=== PATIENT | female | born 1960 | race Caucasian/White ===

== ENCOUNTER 2018-07-29 11:26 | Outpatient (CLI) | payer OTHER, SELFPAY ==
[2018-07-29 12:25] LABS: Abs Immature Grans 0.01 k/cumm (0.0-0.09); Absolute Basophil Count 0.01 k/cumm (0.0-0.2); Absolute Eosinophil Count 0.03 k/cumm (0.0-0.7); Absolute Monocyte Count 0.51 k/cumm (0.11-0.7); Absolute Neutrophil Count 3.76 k/cumm (1.2-6.7); Basophils % 0.2; Eosinophils % 0.5; HCT 36.3 % (36.0-46.0); HGB 12.2 g/dL (12.0-15.5); Immature Grans % 0.2; Lymphocytes % 31.6; Mean Corp. HGB Concentration 33.6 g/dL (32.0-36.0); Mean Corpuscular Hemoglobin 33.3 pg (27.0-33.0); Mean Corpuscular Volume 99.2 fL (80-95); Mean Platelet Volume 9.3 fL (8.0-11.0); Monocytes % 8.1; Neutrophils % 59.4; Platelet Count 265 x1000/uL (130-400); RBC 3.66 m/cumm (4.00-5.20); RBC Distribution Width 13.2 % (11.7-14.6); White Blood Cell Count 6.32 k/cumm (4.4-10.8)
--- NOTE | 2018-07-29 12:47 | W.PREOPHP ---
Assessment and Plan (1) Primary osteoarthritis of left hip: Current visit: No Status: Chronic EKG done at [facility] on July 29, 2018 shows heart rate of 76, sinus rhythm with questionable incomplete right bundle branch block noted in abnormal appearing V1. X-ray taken on May 13, 2017 shows left hip has [id number] joint, as per Dr. Maxwell's note on July 25, 2018 patient has severe end-stage osteoarthritis of left hip. Plan: Reviewed pertinent anatomy and surgical technique with patient in detail. Discussed risk of surgery including but not limited to risk of injury to soft tissue, nerves and blood vessels as well as risk of infection. Patient had opportunity to have questions answered to her satisfaction. Patient will proceed with preoperative visits, and will be scheduled for left total hip replacement on August 03 2018. Patient will contact office if any issues arise. Ms. Weinberg is a 58 yo female who presents to clinic for preoperative visit of scheduled left total hip replacement with Dr. Maxwell on August 03, 2018. Patient describes history of left groin pain starting October 2017. Patient had seen primary care provider several times before being referred to Dr. Maxwell after x-rays reviewed severe left hip osteoarthritis. She describes pain as located in the left groin that radiates to her left buttocks. 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 Pain is aggravated by walking, prolonged standing and lifting. Patient has failed conservative therapies including Tylenol and Aleve. Reports that she currently wears a shoe lift in her left shoe as per chiropractic recommendations several years ago to help manage left hip and back pain. She denies any numbness, weakness or tingling sensation. She denies history of corticosteroid injections. She denies any known injuries to left hip. Denies past medical history of stroke, cardiac issues, angina, asthma, COPD, sleep apnea, renal issues, liver issues, hepatitis, gastrointestinal ulcers, hyperlipidemia, bleeding disorder, seizure/migraine, anxiety, diabetes, autoimmune conditions, thyroid conditions. Denies prior complications from surgery or anesthesia. Review of Systems Constitutional Denies fever(s) and Denies headache(s) Eyes Patient Denies change in vision ENT Denies dizziness, Denies headache(s), Denies epistaxis, Denies nasal discharge and Denies sore throat Comments: partial lower denture Cardiovascular Denies chest pain, Denies rapid heart rate, Denies irregular heart rhythm, Denies dyspnea, Denies dyspnea on exertion, Denies orthopnea, Denies paroxysmal nocturnal dyspnea and Reports slow heart rate Respiratory Reports cough (dry chronic cough), Denies dyspnea and Denies dyspnea on exertion Comments: Denies productive cough Gastrointestinal Denies abdominal pain, Denies melena, Denies hematochezia, Reports constipation (chronic, no recent changes), Denies diarrhea, Denies nausea and Denies vomiting Genitourinary Denies hematuria, Denies dysuria and Denies urinary urgency Musculoskeletal Reports as per HPI, Reports back pain (left sided), Reports joint swelling (reports right leg edema at end of work shift occasionally), Reports limited range of motion (due to left hip pain), Denies muscle cramps, Denies muscle weakness, Denies numbness, Reports radiating pain into limb (radiation from left groin region to buttocks and low back) and Denies tingling Neurologic Denies dizziness, Denies headache(s), Denies numbness and Denies tingling Psychiatric Denies anxiety and Reports depression (reports well controlled on Effexor XR) PFS Family History Mother No problems noted. Father No problems noted. Brother No problems noted. 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?[employer] Smoking/Tobacco Use Status: Never alcohol intake: current details: Reports 3 beers nightly; denies history of withdrawal symptoms substance use type: does not use Surgical History Abdominal hysterectomy Extraction of cataract Ligation of fallopian tube bladder sling Meds Home Medications Medication Instructions Recorded Confirmed Type Slim Quick 1 tab PO DAILY 09/06/15 07/29/18 History acetaminophen [Acetaminophen Extra 2 tab PO PRN PRN 09/06/15 07/29/18 History Strength] venlafaxine [Effexor XR] 75 mg PO HS 09/06/15 07/29/18 History multivitamin [Daily Multi-Vitamin] 1 tab PO DAILY 09/12/15 07/29/18 History lisinopril 10 mg PO HS 07/29/18 07/29/18 History Allergies Allergy/AdvReac Type Severity Reaction Status Date / Time No Known Allergies Allergy Unverified 07/29/18 14:24 Exam Const General: cooperative, healthy appearing, well developed and well groomed Nutritional Appearance: average body habitus Orientation: alert and oriented x3 HENMT Head: normal to inspection, normocephalic and atraumatic Ears: external ears normal, TM normal on the right and unable to visualize TM (Large amount of cerumen present in the left ear canal obstructing view of left TM) on the left General nose exam: external nose normal and no nasal discharge Face and sinus: face symmetric Mouth: oral mucosae normal, tongue normal and moist mucous membranes Teeth and gingiva: fair dentition (Partial lower denture was intact) Eyes General: appearance normal, both eyes and all related structures Conjunctivae: conjunctivae normal Sclera: sclerae normal Pupils: PERRL Neck Neck: normal visual inspection, no lymphadenopathy and trachea midline Carotids: normal carotid upstroke Lymphatic: no lymphadenopathy noted Resp Effort & Inspection: normal respiratory effort, able to speak in complete sentences, no cough and no retractions Auscultation: clear to auscultation bilaterally Cardio Palpation: abnormal PMI Heart Sounds: S1 normal, S2 normal, no gallops, no murmurs and no rubs GI Palpation: soft, no hepatosplenomegaly and tender (slight tenderness to deep palpation over LLQ, no tenderness to light palpation over LLQ) Auscultation: normal bowel sounds Skin General skin exam: no rashes or lesions noted Extrem Other: Left hip examination: Skin overlying left hip is intact without signs of lesions or rash. Area is without edema, ecchymosis or tenderness to palpation. Palpation over greater trochanter does not elicit pain. Active range of motion reveals flexion of 30? with pain in left groin. Passive range of motion yields abduction of 30?, external rotation 15? and internal rotation of 10?. Passive range of motion elicits pain in the anterior aspect of left hip. Straight leg raise elicits pain in the anterior aspect of left hip. Resisted straight leg raise elicits pain anterior aspect of left hip. Results Labs : 07/29/18 11:50 07/29/18 11:50 Laboratory Results - last 24 hr 07/29/18 11:50 WBC 6.32 RBC 3.66 L Hgb 12.2 Hct 36.3 MCV 99.2 H MCH 33.3 H MCHC 33.6 RDW 13.2 Plt Count 265 MPV 9.3 Immature Gran % 0.2 Neutrophils % 59.4 Lymphocytes % 31.6 Monocytes % 8.1 Eosinophils % 0.5 Basophils % 0.2 Absolute Neutrophils 3.76 Absolute Lymphocytes 2.00 Absolute Monocytes 0.51 Absolute Eosinophils 0.03 Absolute Basophils 0.01
--- NOTE | 2018-07-29 12:57 | HPE_ITS ---
Assessment and Plan (1) Primary osteoarthritis of left hip: Current visit: No Status: Chronic EKG done at [facility] on July 29, 2018 shows heart rate of 76, sinus rhythm with questionable incomplete right bundle branch block noted in abnormal appearing V1. X-ray taken on May 13, 2017 shows left hip has owup-ao-yolo joint, as per Dr. Maxwell's note on July 25, 2018 patient has severe end-stage osteoarthritis of left hip. Plan: Reviewed pertinent anatomy and surgical technique with patient in detail. Discussed risk of surgery including but not limited to risk of injury to soft tissue, nerves and blood vessels as well as risk of infection. Patient had opportunity to have questions answered to her satisfaction. Patient will proceed with preoperative visits, and will be scheduled for left total hip replacement on August 03 2018. Patient will contact office if any issues arise. Ms. Weinberg is a 58 yo female who presents to clinic for preoperative visit of scheduled left total hip replacement with Dr. Maxwell on August 03, 2018. Patient describes history of left groin pain starting October 2017. Patient had seen primary care provider several times before being referred to Dr. Maxwell after x-rays reviewed severe left hip osteoarthritis. She describes pain as located in the left groin that radiates to her left buttocks. 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 Pain is aggravated by walking, prolonged standing and lifting. Patient has failed conservative therapies including Tylenol and Aleve. Reports that she currently wears a shoe lift in her left shoe as per chiropractic recommendations several years ago to help manage left hip and back pain. She denies any numbness, weakness or tingling sensation. She denies history of corticosteroid injections. She denies any known injuries to left hip. Denies past medical history of stroke, cardiac issues, angina, asthma, COPD, sleep apnea, renal issues, liver issues, hepatitis, gastrointestinal ulcers, hyperlipidemia, bleeding disorder, seizure/migraine, anxiety, diabetes, autoimmune conditions, thyroid conditions. Denies prior complications from surgery or anesthesia. Review of Systems Constitutional Denies fever(s) and Denies headache(s) Eyes Patient Denies change in vision ENT Denies dizziness, Denies headache(s), Denies epistaxis, Denies nasal discharge and Denies sore throat Comments: partial lower denture Cardiovascular Denies chest pain, Denies rapid heart rate, Denies irregular heart rhythm, Denies dyspnea, Denies dyspnea on exertion, Denies orthopnea, Denies paroxysmal nocturnal dyspnea and Reports slow heart rate Respiratory Reports cough (dry chronic cough), Denies dyspnea and Denies dyspnea on exertion Comments: Denies productive cough Gastrointestinal Denies abdominal pain, Denies melena, Denies hematochezia, Reports constipation (chronic, no recent changes), Denies diarrhea, Denies nausea and Denies vomiting Genitourinary Denies hematuria, Denies dysuria and Denies urinary urgency Musculoskeletal Reports as per HPI, Reports back pain (left sided), Reports joint swelling ( reports right leg edema at end of work shift occasionally), Reports limited range of motion (due to left hip pain), Denies muscle cramps, Denies muscle weakness, Denies numbness, Reports radiating pain into limb (radiation from left groin region to buttocks and low back) and Denies tingling Neurologic Denies dizziness, Denies headache(s), Denies numbness and Denies tingling Psychiatric Denies anxiety and Reports depression (reports well controlled on Effexor XR) PFS Family History Mother No problems noted. Father No problems noted. Brother No problems noted. 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?[employer] Smoking/Tobacco Use Status: Never alcohol intake: current details: Reports 3 beers nightly; denies history of withdrawal symptoms substance use type: does not use Surgical History Abdominal hysterectomy Extraction of cataract Ligation of fallopian tube bladder sling Meds Home Medications Medication Instructions Recorded Confirmed Type Slim Quick 1 tab PO DAILY 09/06/15 07/29/18 History acetaminophen [Acetaminophen Extra 2 tab PO PRN PRN 09/06/15 07/29/18 History Strength] venlafaxine [Effexor XR] 75 mg PO HS 09/06/15 07/29/18 History multivitamin [Daily Multi-Vitamin] 1 tab PO DAILY 09/12/15 07/29/18 History lisinopril 10 mg PO HS 07/29/18 07/29/18 History Allergies Allergy/AdvReac Type Severity Reaction Status Date / Time No Known Allergies Allergy Unverified 07/29/18 14:24 Exam Const General: cooperative, healthy appearing, well developed and well groomed Nutritional Appearance: average body habitus Orientation: alert and oriented x3 HENMT Head: normal to inspection, normocephalic and atraumatic Ears: external ears normal, TM normal on the right and unable to visualize TM ( Large amount of cerumen present in the left ear canal obstructing view of left TM) on the left General nose exam: external nose normal and no nasal discharge Face and sinus: face symmetric Mouth: oral mucosae normal, tongue normal and moist mucous membranes Teeth and gingiva: fair dentition (Partial lower denture was intact) Eyes General: appearance normal, both eyes and all related structures Conjunctivae: conjunctivae normal Sclera: sclerae normal Pupils: PERRL Neck Neck: normal visual inspection, no lymphadenopathy and trachea midline Carotids: normal carotid upstroke Lymphatic: no lymphadenopathy noted Resp Effort & Inspection: normal respiratory effort, able to speak in complete sentences, no cough and no retractions Auscultation: clear to auscultation bilaterally Cardio Palpation: abnormal PMI Heart Sounds: S1 normal, S2 normal, no gallops, no murmurs and no rubs GI Palpation: soft, no hepatosplenomegaly and tender (slight tenderness to deep palpation over LLQ, no tenderness to light palpation over LLQ) Auscultation: normal bowel sounds Skin General skin exam: no rashes or lesions noted Extrem Other: Left hip examination: Skin overlying left hip is intact without signs of lesions or rash. Area is without edema, ecchymosis or tenderness to palpation. Palpation over greater trochanter does not elicit pain. Active range of motion reveals flexion of 30? with pain in left groin. Passive range of motion yields abduction of 30?, external rotation 15? and internal rotation of 10?. Passive range of motion elicits pain in the anterior aspect of left hip. Straight leg raise elicits pain in the anterior aspect of left hip. Resisted straight leg raise elicits pain anterior aspect of left hip. Results Labs : 07/29/18 11:50 07/29/18 11:50 Laboratory Results - last 24 hr 07/29/18 11:50 WBC 6.32 RBC 3.66 L Hgb 12.2 Hct 36.3 MCV 99.2 H MCH 33.3 H MCHC 33.6 RDW 13.2 Plt Count 265 MPV 9.3 Immature Gran % 0.2 Neutrophils % 59.4 Lymphocytes % 31.6 Monocytes % 8.1 Eosinophils % 0.5 Basophils % 0.2 Absolute Neutrophils 3.76 Absolute Lymphocytes 2.00 Absolute Monocytes 0.51 Absolute Eosinophils 0.03 Absolute Basophils 0.01
[2018-07-29 13:21] LABS: Anion Gap 6.8 mmol/L (3-11); BUN 25 mg/dL (7-18); CO2 29.2 mmol/L (21.0-32.0); CREATININE 0.89 mg/dL (0.55-1.02); Chloride 103 mmol/L (98-107); Glucose 84 mg/dL (70-100); Potassium 4.4 mmol/L (3.5-5.1); Sodium 139 mmol/L (136-145)
== END 2018-07-29 11:46 ==
PROVIDERS: PCP Internal Medicine; Visit Provider Orthopaedic Surgery
DX: M16.12 Unilateral primary osteoarthritis, left hip (principal); M25.552 Pain in left hip; Z01.818 Encounter for other preprocedural examination
CPT/HCPCS: 36415; 80051; 82947; 84520; 86850; 86900; 86901; NC; 82565; 85025; 93005; 93010

== ENCOUNTER 2018-08-03 10:37 | Inpatient (IN) | payer OTHER, SELFPAY ==
--- NOTE | 2018-07-29 15:21 | PDOC.CMPRO ---
- If Service Date Differs Date of service: 07/29/18 Time of Service: 15:21 Care Management Progress Note CM met with Kaci at the request of DSU prior to her surgery. Kaci will be having a DJD (L) hip on 08/[address] Maxwell. Pt resides in [place] with her , Edward. She has two steps up into her home and reports that she has good support from her and adult children who live locally. 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 She does not have advanced directives on file, she was provided with information on the portal and her PCP is Dr. Rodriguez. Kaci has a walker, cane and crutches at home so will not need a FWW prior to discharge. Kaci will transport via private vehicle with , Edward. CM will offer support to pt, family and care team regarding discharge planning and disposition following her hospitalization.
--- NOTE | 2018-07-29 15:28 | CMPROGNOTE_ITS ---
- If Service Date Differs Date of service: 07/29/18 Time of Service: 15:21 Care Management Progress Note CM met with Kaci at the request of DSU prior to her surgery. Kaci will be having a DJD (L) hip on 08/[address] Maxwell. Pt resides in [place] with her , Edward. She has two steps up into her home and reports that she has good support from her and adult children who live locally. 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 She does not have advanced directives on file, she was provided with information on the portal and her PCP is Dr. Rodriguez. Kaci has a walker, cane and crutches at home so will not need a FWW prior to discharge. Kaci will transport via private vehicle with , Edward. CM will offer support to pt , family and care team regarding discharge planning and disposition following her hospitalization.
[2018-08-03] VITALS (18 sets, daily range): BP systolic 85–119; BP diastolic 47–100; PULSE 60–91; RESP 12–23; TEMP 35.8–37.4; O2SAT 94–99
[2018-08-03] MEDS: Lactated Ringers 1,000 ML 80 ML IV ×2 (06:39→09:31)
[2018-08-03] MEDS: Ketorolac 30 MG/ML VIAL (10:21)
[2018-08-03] MEDS: Bupivacaine 0.25% Pres-Free 30 ML VIAL ×2 (10:24→10:25)
--- NOTE | 2018-08-03 11:21 | DI.RAD_ITS ---
SYMPTOMS/DIAGNOSIS: LT TOTAL HIP ARTHROPLASTY PORTABLE AP PELVIS: Single view was obtained and shows left hip prosthesis in position. The components appear well seated on this AP view.
--- NOTE | 2018-08-03 13:00 | NUR.NOTE ---
Nursing Note: 1300 Pt arrived from [facility] via stretcher -alert and oriented x3 - skin warm and dry - toes cool bilaterally - color pink - L foot cap refill <3 sec - positive pedal pulse - drsg clean, dry and intact - IV patent and intact - wedge between legs in place - Teds on the right leg - SCD applied - castellano in place - [facility] states pt's BP has been soft - they believed the patient is dry - pt had fluid boluses in the [facility] -
[2018-08-03] MEDS: HYDROcodone 5/Acetaminophen 325 TAB PO ×2 (13:15→17:35)
[2018-08-03] MEDS: POTASSIUM CHLORIDE/0.9% NACL 1,000 ML 125 MEQ IV (13:17)
--- NOTE | 2018-08-03 14:07 | NUR.NOTE ---
1407 Report given to Linsey at 1300. This nurse no longer the pt's nurse. Nursing Note:
--- NOTE | 2018-08-03 14:28 | PT.INIE ---
Date of service: 08/03/18 Time of Service: 14:29 PT Notes Inpatient Physical Therapy Evaluation Date: 08/03/18 Referring Doctor: Shane Maxwell PT Orders: PT CONSULT: left total hip arthroplasty, weight bear as tolerated with walker, patient may perform bed exercises with left hip mildly abducted to protect posterior capsule repair Precautions: posterior left total hip precautions, WBAT L LE Patient Profile/Admitting Diagnosis: Pt is a 58yr old female s/p left total hip arthroplasty by Dr. Maxwell 08/03/18 PMHX: degenerative joint disease left hip, hypertension, bilateral cataracts, constipation, depression, pelvic enterocele, rectocele, abdominal hysterectomy, ligation fallopian tube, bladder sling Social History/Home Situation: Lives with in home with 2 steps and railing to enter, baseline mobility independent gait with no device, independent with ADLS. 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 Equipment Owned/DME: FWW, cane, crutches Subjective: Pt lying in bed, states she is eager to get out of bed and move around becuase her back gets stiff with too much lying in the bed. Mother in room observing session. Objective: General Observation: abduction pillow, ice pack left hip, dressing left hip, IV RUE, castellano catheter Mental Status: A& O x3 Pain: c/o mild pain in left groin at beginning of session, resolved by end of session ROM: Right Upper Extremity: AROM WNL Left Upper Extremity: AROM WNL Right Lower Extremity: AROM WNL Left Lower Extremity: AROM hip flexion 90, knee and ankle WNL Strength: Right Upper Extremity: 5/5 throughout Left Upper Extremity: 5/5 throughout Right Lower Extremity: 5/5 throughout Left Lower Extremity: hip flexion NT, 4/5 quad, 5/5 DF/PF Bed Mobility/Transfers: Supine-sit: HOB 30 degrees, Kristel for L LE Sit-stand: SBA with FWW Stand-sit: SBA Sit-supine: HOB flat, Kristel for L LE Gait: SBA with FWW 20ftx2, WBAT L LE. Slow step to gait pattern. Pt with no pain with gait. Returned to bed after session completed with abduction pillow in place. Therex: Performed ankle pumps, quad sets, glute sets x 20 reps, long arc quads x 10 reps. Pt has issued home exercise program. Precautions: Pt instructed in posterior total hip precautions and issued handouts with precautions. Pt verbalized understanding. Balance: Static Sitting: normal Dynamic Sitting: normal Static Standing: fair Dynamic Standing: fair Special Tests: Mobility Limitations Standardized Measure [facility] AM-PAC 6 clicks Basic Mobility Inpatient Short Form: Raw Score: 18 Standardized Score: 43.63 CMS Score: 46.58% CMS Modifier: CK Informed Consent/Education: Patient instructed in purpose of PT consult and plan of care. Assessment: Pt is a 58yr old female s/p left total hip arthroplasty by Dr. Maxwell 08/03/18 in setting of degenerative joint disease left hip, hypertension. Patient presents with clinical signs and symptoms consistent with post op JIMMY, as demonstrated by the following impairment level findings: edema left hip, decreased strength left hip, decreased strength with lifting L LE into/out of bed, decreased strength with standing transfers and gait mobility requiring FWW for stability and increased time to complete tasks. Pt with decreased static and dynamic standing balance. Pt will benefit from physical therapy intervention for strengthening and mobility training. Impairments are contributing to the following functional limitations: AMPAC score CMS Score: 46.58% Patient is assessed as a Moderate 36048 complexity based on the following: History: see above Examination: L hip, edema left hip, decreased strength left hip, decreased strength with lifting L LE into/out of bed, decreased strength with standing transfers and gait mobility requiring FWW for stability and increased time to complete tasks, decreased static and dynamic standing balance Presentation: evolving Decision Making: AMPAC score CMS Score: 46.58% Goals: Goals X1 week 1. Supine-Sit independent 2. Sit-Supine independent 3. Sit-Stand supervision with FWW 4. Stand-Sit supervision with FWW 5. Bed-Chair supervision with FWW 6. Chair-Bed supervision with FWW 7. Gait supervision with FWW 80ftx2, WBAT L LE 8. Stairs up/down 2 steps with railing, SBA WBAT L LE 9. Independent with home exercise program for JIMMY Plan of Care/Treatment Plan: 1-2x/day, 7 days/week x 1 week. Plan of care has been reviewed with the GLOBAL TRANSPORTATION MANAGER providing the service under Physical Therapy direction. Initiate Physical Therapy intervention for strengthening, bed mobility, transfers, gait, stairs, balance training, use of assistive device. DISCHARGE RECOMMENDATIONS: Home, has all DME * would benefit from OT Consultation in hospital setting for instruction in use of adaptive equipment for ADLS TREATMENT CODE/TIME: 25min IE 1430 G Codes in the area mobility of walking and moving around: current status [id number] CK; projected status GP [id number]. Discharge status (if discharging) GP [id number] ck based on [facility] score CMS Score: 46.58% Lauren Kim PT
[2018-08-03] MEDS: POTASSIUM CHLORIDE/D5-0.9%NACL 1,000 ML 125 MEQ IV ×2 (14:35→23:41)
--- NOTE | 2018-08-03 16:40 | ROE_ITS ---
DATE OF PROCEDURE: August 03, 2018 PREOPERATIVE DIAGNOSIS: End-stage osteoarthritis left hip. POSTOPERATIVE DIAGNOSIS: End-stage osteoarthritis left hip. PROCEDURE: Left total hip arthroplasty with cementless fixation. SURGEON: Shane Maxwell M.D. [employer] OPERATOR: Irene Zhou PA-C ANESTHESIA: Spinal with IV sedation by Payton Carrillo CRNA PREP: ChloraPrep. INDICATIONS: This patient is a 58-year-old female who presented to my office a few weeks ago with se priscilla and disabling left hip pain. 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 X-rays taken in 2017 showed significant arthritis of the left hip. A recent CT sc an performed for abdominal complaints also confirmed that the exam showed essentially no internal rot ation of the left hip and severe pain affecting the patient's ability to walk. She walked in a forwa rd flexed posture and felt the suitable treatment for this was total hip arthroplasty. I reviewed wi the patient and her in the office and again today the planned operative procedure and its risks and benefits. This included infection, dislocation, and blood loss. They understood and wishe d to proceed. OPERATIVE PROCEDURE: The patient was taken to the Operating [facility] where she underwent successful ind uction of spinal anesthesia. She does have a history of chronic back issues but, after some position ing changes, a spinal was successful. She was then placed in the right lateral decubitus position wi that position being maintained with a vac pack device. The patient's preoperative radiographs and CT scan showed she had some relative shortening of her left leg secondary to the arthritis of the le ft hip compared to the right. The plan was to perform a total hip arthroplasty and try to restore he r leg lengths. The estimated amount of shortening was about 5 mm. After she was in the lateral decu bitus position, I noted the relationship of the patella of one knee in relationship to the other as t hey were superimposed with the sterile drapes in place, and I anticipated the lengthening of the left lower extremity even out the differences that were noted preoperatively. The entire left lower extremity was prepped with ChloraPrep. A standard posterolateral approach to t he hip was performed as described by Caitlin. After prepping and draping, the incision was made. Th e skin and subcutaneous tissues were incised. Hemostasis as controlled by electrocautery. The Ortho PAT device was used to perform blood salvage throughout the procedure until the very end. The incisi on was carried sharply down through Deena's fascia through the investing fascia at the gluteus maxim um and the IT band. These fascial layers were split sharply. The short external rotator tendons wer e identified by following the trochanteric bursa to them. They were tagged with sutures of #1 Vicryl suture including suturing and tagging the conjoined tendon of the piriformis and obturator internus together. This was detached from its posterior intertrochanteric attachment and then reattached at t he end of the case. The rest of the short external rotators were also tagged with suture of #1 Vicry l for their reattachment. The hip capsule was identified. I then carefully out the capsular portion of the gluteus m inimus superiorly and incised the capsule. A copious amount of joint fluid was encountered. With mi ld to moderate difficulty the hip was dislocated by a combination of flexion, adduction, and internal rotation. The femoral head was devoid of all articular cartilage. There were osteophytes over the posterior inferior aspect. Using a femoral neck resection guide, the femoral head and neck segments were resected at an appropriate level above the lesser trochanter allowing for lengthening of the march b. I then set the femoral head aside. There was no evidence of avascular necrosis. The cotyloid notch was cleared of any debris to allow for reaming. The patient's femoral head measur ed 44 mm and I felt that a 48-mm acetabular component would have the most appropriate fit. Retractor s were placed around the socket and reamers were placed to remove the remaining articular cartilage w hich was fairly scant. There was abundant medial wall bone. I felt that the size 48 acetabular comp onent would be the most appropriate. This would allow an interface of a 32-mm femoral head and a 32- mm acetabular shell liner. Although ideally I would have liked to have placed a 36-mm head, I felt t hat there would be sacrifice of too much acetabular bone to accomplish this. The actual acetabular c omponent was then capped into position allowing for anteversion and abduction. An excellent press fi t was achieved. Nonetheless, I placed two screws to ensure bony integration. The first screw was 25 mm and was placed at the relatively 12 o'clock position. A second screw was placed at the 2 o'clock position and was 20 mm. These screws were carefully seated in the shell. I then placed a trial mo er into the acetabular shell and then proceed to broach and prepare the proximal femur. Starting with a box chisel, a wedge of bone was removed from the greater trochanter to allow placemen t of the femoral component into valgus. The endosteal surface was broached with a sharp broach follo wed by using several integral reamers up to size 5. I then began broaching in a sequential fashion b eginning with size 1 to size 5 until a very tight press fit was accomplished. The anteversion was ca refully adjusted, matching the patient's [place] anteversion. Closed reduction was performed with a 1 -mm trial head with an increased offset neck and this showed the hip was stable to the extremes of fl exion, adduction, and internal rotation. Prior to disarticulating the patient's [place] hip I had used an Innomed device to measure the patient 's leg lengths with a pin placed in the ilium and a marker placed on the greater trochanter. With th e trial components in place it showed appropriate lengthening of the limb by approximately 6 mm. The final components were placed consisting of a size 5 stem and a +1-mm x 32-mm ceramic head with a polyethylene liner containing a 10-degree lip of polyethylene placed at the 3 o'clock position. Libia l stability was excellent. At this point, the Betadine irrigation protocol was instituted. Dilute Betadine 17.5 cc was placed i n 500 cc of saline and placed in the joint over the course of 3 minutes. This was then irrigated out with 1000 cc of saline. This was followed by introduction of tranexamic acid 3 grams in 100 cc of s maegan to control bleeding. The OrthoPAT device was discontinued at the beginning of the saline irrig ation. Blood was obtained to transfuse and the estimated blood loss by the end of the case was appro ximately 250 cc. The capsule was repaired with sutures of #1 Vicryl in a [id number] fashion. The combined tendon of the piriformis and obturator internus tendons were reattached to bone with drill holes through th e greater trochanter using sutures of #2 Ethibond. The quadratus femoris and the other short externa l rotators were reattached with #2 Ethibond as well. The repair of the gluteus roxanna fascia and th e IT band was accomplished with sutures of #1 Vicryl in a [id number] fashion. Deena's fascia w as closed with #2-0 Vicryl. Subcutaneous tissues were closed with #2-0 Vicryl and the skin was close d with kurt. Wound were dressed with Xeroform gauze, 4x4s, and ABD pads, followed by Medipore tap e. The patient was carefully transferred in a supine position to the hospital bed with an abduction pillow between the legs.
[2018-08-03] MEDS: Ibuprofen 600 MG TAB PO (17:34)
[2018-08-03] MEDS: Lisinopril 10 MG TAB PO (20:08)
[2018-08-03] MEDS: Venlafaxine 37.5 MG CAPCR 75 MG PO (20:09)
[2018-08-04] MEDS: Ibuprofen 600 MG TAB PO ×3 (01:55→17:14)
[2018-08-04] MEDS: HYDROcodone 5/Acetaminophen 325 TAB PO ×5 (01:55→21:14)
[2018-08-04 05:11] VITALS: BP 90/58; PULSE 79; RESP 18; TEMP 37.1; O2SAT 97
[2018-08-04 07:10] VITALS: O2SAT 97
[2018-08-04 07:31] LABS: HCT 28.2 % (36.0-46.0); HGB 9.3 g/dL (12.0-15.5); Mean Platelet Volume 9.6 fL (8.0-11.0); Platelet Count 196 x1000/uL (130-400); RBC 2.82 m/cumm (4.00-5.20); RBC Distribution Width 13.2 % (11.7-14.6)
[2018-08-04 07:35] VITALS: BP 110/58; PULSE 77; RESP 17; TEMP 36.8; O2SAT 97
[2018-08-04 07:35] LABS: Anion Gap 8.3 mmol/L (3-11); BUN 15 mg/dL (7-18); CO2 25.7 mmol/L (21.0-32.0); CREATININE 0.57 mg/dL (0.55-1.02); Chloride 106 mmol/L (98-107); Glucose 155 mg/dL (70-100); Potassium 4.4 mmol/L (3.5-5.1); Sodium 140 mmol/L (136-145)
--- NOTE | 2018-08-04 07:59 | W.PM.PROGNOT ---
Assessment and Plan (1) Primary osteoarthritis of left hip: Current visit: Yes Status: Resolved (2) Encounter for postoperative care: Start date: 08/04/18 Start time: 08:38 Current visit: Yes Status: Acute Continue iv at current rate until blood pressure increases. Patient is not symptomatic sitting in chair. O.T. consult. Hold lisinopril until systolic blood pressure improves. Possible d/c castellano this afternoon if problematic, otherwise continue 24 more hours Subjective Interval history since last seen: Currently up in chair. Was able to get up and walk around hospital room yesterday afternboon. No chest pain, pressure or shortnes of breath. No numbness or tingling of toes. Catheter bothered her a little yseterday, but better today. Exam Const Other: Alert and orented. Systolic bp is 93 but no associated tachycardia. Able to doriflex left ankle and toes. Surgical findings reviewed in detail Hgb 9.3 Lytes wnl except mild hyperglycemai\\ia Objective Objective Clinical Data: Abnormal lab results 08/04/18 08/04/18 Range/Units 06:20 06:20 RBC 2.82 L (4.00-5.20) m/cumm Hgb 9.3 L (12.0-15.5) g/dL Hct 28.2 L (36.0-46.0) % MCV 100.0 H (80-95) fL Glucose 155 H (70-100) mg/dL Calcium 8.0 L (8.5-10.1) mg/dL Vital Signs Temp 98.8 F 08/04/18 05:11 Pulse 79 08/04/18 05:11 Resp 18 08/04/18 05:11 BP 90/58 L 08/04/18 05:11 Pulse Ox 97 08/04/18 05:11 Intake & Output 08/03/18 08/03/18 08/04/18 11:59 23:59 11:59 Intake Total 778.000 / 334.157 3455 / 1940 Output Total 300 / 300 700 / 700 Balance 478.000 / 005.739 1249 / 1940 -700 / -700 Weight 152 lb 4.796 oz Intake: IV 778.000 / 596.319 6489 / 1700 Oral 240 / 240 Output: Urine 300 / 300 700 / 700 Other: Urine Color Yellow Dark Sara [place] Urine Appearance Clear Clear Clear Comment INTRAOP. Stool Size Smear Emesis Description None Laboratory Results WBC 7.50 k/cumm (4.4-10.8) 08/04/18 06:20 RBC 2.82 m/cumm (4.00-5.20) L 08/04/18 06:20 Hgb 9.3 g/dL (12.0-15.5) L 08/04/18 06:20 Hct 28.2 % (36.0-46.0) L 08/04/18 06:20 MCV 100.0 fL (80-95) H 08/04/18 06:20 MCH 33.0 pg (27.0-33.0) 08/04/18 06:20 MCHC 33.0 g/dL (32.0-36.0) 08/04/18 06:20 RDW 13.2 % (11.7-14.6) 08/04/18 06:20 Plt Count 196 x1000/uL (130-400) 08/04/18 06:20 MPV 9.6 fL (8.0-11.0) 08/04/18 06:20 Sodium 140 mmol/L (136-145) 08/04/18 06:20 Potassium 4.4 mmol/L (3.5-5.1) 08/04/18 06:20 Chloride 106 mmol/L (98-107) 08/04/18 06:20 Carbon Dioxide 25.7 mmol/L (21.0-32.0) 08/04/18 06:20 Anion Gap 8.3 mmol/L (3-11) 08/04/18 06:20 BUN 15 mg/dL (7-18) 08/04/18 06:20 Creatinine 0.57 mg/dL (0.55-1.02) 08/04/18 06:20 Estimated GFR/1.73 m2 >= 60.00 (mL/min/1.73m2) 08/04/18 06:20 Glucose 155 mg/dL (70-100) H 08/04/18 06:20 Calcium 8.0 mg/dL (8.5-10.1) L 08/04/18 06:20
--- NOTE | 2018-08-04 08:05 | PGE_ITS ---
Assessment and Plan (1) Primary osteoarthritis of left hip: Current visit: Yes Status: Resolved (2) Encounter for postoperative care: Start date: 08/04/18 Start time: 08:38 Current visit: Yes Status: Acute Continue iv at current rate until blood pressure increases. Patient is not symptomatic sitting in chair. O.T. consult. Hold lisinopril until systolic blood pressure improves. Possible d/c castellano this afternoon if problematic, otherwise continue 24 more hours Subjective Interval history since last seen: Currently up in chair. Was able to get up and walk around hospital room yesterday afternboon. No chest pain, pressure or shortnes of breath. No numbness or tingling of toes. Catheter bothered her a little yseterday, but better today. Exam Const Other: Alert and orented. Systolic bp is 93 but no associated tachycardia. Able to doriflex left ankle and toes. Surgical findings reviewed in detail Hgb 9.3 Lytes wnl except mild hyperglycemai\\ia Objective Objective Clinical Data: Abnormal lab results 08/04/18 08/04/18 Range/Units 06:20 06:20 RBC 2.82 L (4.00-5.20) m/cumm Hgb 9.3 L (12.0-15.5) g/dL Hct 28.2 L (36.0-46.0) % MCV 100.0 H (80-95) fL Glucose 155 H (70-100) mg/dL Calcium 8.0 L (8.5-10.1) mg/dL Vital Signs Temp 98.8 F 08/04/18 05:11 Pulse 79 08/04/18 05:11 Resp 18 08/04/18 05:11 BP 90/58 L 08/04/18 05:11 Pulse Ox 97 08/04/18 05:11 Intake & Output 08/03/18 08/03/18 08/04/18 11:59 23:59 11:59 Intake Total 778.000 / 621.141 9091 / 1940 Output Total 300 / 300 700 / 700 Balance 478.000 / 503.679 7883 / 1940 -700 / -700 Weight 152 lb 4.796 oz Intake: IV 778.000 / 923.955 2263 / 1700 Oral 240 / 240 Output: Urine 300 / 300 700 / 700 Other: Urine Color Yellow Dark Sara [place] Urine Appearance Clear Clear Clear Comment INTRAOP. Stool Size Smear Emesis Description None Laboratory Results WBC 7.50 k/cumm (4.4-10.8) 08/04/18 06:20 RBC 2.82 m/cumm (4.00-5.20) L 08/04/18 06:20 Hgb 9.3 g/dL (12.0-15.5) L 08/04/18 06:20 Hct 28.2 % (36.0-46.0) L 08/04/18 06:20 MCV 100.0 fL (80-95) H 08/04/18 06:20 MCH 33.0 pg (27.0-33.0) 08/04/18 06:20 MCHC 33.0 g/dL (32.0-36.0) 08/04/18 06:20 RDW 13.2 % (11.7-14.6) 08/04/18 06:20 Plt Count 196 x1000/uL (130-400) 08/04/18 06:20 MPV 9.6 fL (8.0-11.0) 08/04/18 06:20 Sodium 140 mmol/L (136-145) 08/04/18 06:20 Potassium 4.4 mmol/L (3.5-5.1) 08/04/18 06:20 Chloride 106 mmol/L (98-107) 08/04/18 06:20 Carbon Dioxide 25.7 mmol/L (21.0-32.0) 08/04/18 06:20 Anion Gap 8.3 mmol/L (3-11) 08/04/18 06:20 BUN 15 mg/dL (7-18) 08/04/18 06:20 Creatinine 0.57 mg/dL (0.55-1.02) 08/04/18 06:20 Estimated GFR/1.73 m2 >= 60.00 (mL/min/1.73m2) 08/04/18 06:20 Glucose 155 mg/dL (70-100) H 08/04/18 06:20 Calcium 8.0 mg/dL (8.5-10.1) L 08/04/18 06:20
--- NOTE | 2018-08-04 08:06 | PGE_ITS ---
Objective Objective Clinical Data: Abnormal lab results 08/04/18 08/04/18 Range/Units 06:20 06:20 RBC 2.82 L (4.00-5.20) m/cumm Hgb 9.3 L (12.0-15.5) g/dL Hct 28.2 L (36.0-46.0) % MCV 100.0 H (80-95) fL Glucose 155 H (70-100) mg/dL Calcium 8.0 L (8.5-10.1) mg/dL Vital Signs Temp 98.8 F 08/04/18 05:11 Pulse 79 08/04/18 05:11 Resp 18 08/04/18 05:11 BP 90/58 L 08/04/18 05:11 Pulse Ox 97 08/04/18 05:11 Intake & Output 08/03/18 08/03/18 08/04/18 11:59 23:59 11:59 Intake Total 778.000 / 328.781 7000 / 1940 Output Total 300 / 300 700 / 700 Balance 478.000 / 407.284 4428 / 1940 -700 / -700 Weight 152 lb 4.796 oz Intake: IV 778.000 / 188.407 0366 / 1700 Oral 240 / 240 Output: Urine 300 / 300 700 / 700 Other: Urine Color Yellow Dark Sara [place] Urine Appearance Clear Clear Clear Comment INTRAOP. Stool Size Smear Emesis Description None Laboratory Results WBC 7.50 k/cumm (4.4-10.8) 08/04/18 06:20 RBC 2.82 m/cumm (4.00-5.20) L 08/04/18 06:20 Hgb 9.3 g/dL (12.0-15.5) L 08/04/18 06:20 Hct 28.2 % (36.0-46.0) L 08/04/18 06:20 MCV 100.0 fL (80-95) H 08/04/18 06:20 MCH 33.0 pg (27.0-33.0) 08/04/18 06:20 MCHC 33.0 g/dL (32.0-36.0) 08/04/18 06:20 RDW 13.2 % (11.7-14.6) 08/04/18 06:20 Plt Count 196 x1000/uL (130-400) 08/04/18 06:20 MPV 9.6 fL (8.0-11.0) 08/04/18 06:20 Sodium 140 mmol/L (136-145) 08/04/18 06:20 Potassium 4.4 mmol/L (3.5-5.1) 08/04/18 06:20 Chloride 106 mmol/L (98-107) 08/04/18 06:20 Carbon Dioxide 25.7 mmol/L (21.0-32.0) 08/04/18 06:20 Anion Gap 8.3 mmol/L (3-11) 08/04/18 06:20 BUN 15 mg/dL (7-18) 08/04/18 06:20 Creatinine 0.57 mg/dL (0.55-1.02) 08/04/18 06:20 Estimated GFR/1.73 m2 >= 60.00 (mL/min/1.73m2) 08/04/18 06:20 Glucose 155 mg/dL (70-100) H 08/04/18 06:20 Calcium 8.0 mg/dL (8.5-10.1) L 08/04/18 06:20
--- NOTE | 2018-08-04 08:12 | PT.INTREAT ---
Date of service: 08/04/18 Time of Service: 07:30 PT Notes Inpatient Physical Therapy Treatment Note Date: 08/04/18 PRECAUTIONS: posterior total hip precautions, WBAT L LE SUBJECTIVE: Pt reports she is more sore today than yesterday, states she had a difficult time sleeping last night and getting comfortable. Eager to mobilize this morning. OBJECTIVE General observation: IV R UE, castellano catheter PAIN: no c/o pain BED MOBILITY/TRANSFERS Sit-stand: supervision with FWW Stand-sit: supervision GAIT Assistive Device: FWW Weight bearing: WBAT L LE Assist: supervision Distance: 60ftx2 Deviation: step through gait pattern with decreased stride and wyatt due to left hip tightness/soreness reported. Pt left up in chair for breakfast after session completed. THEREX: Performed ankle pumps x 20 reps, long arc quads x10 reps ASSESSMENT: Pt mobilizing well with transfers and gait mobility with FWW, limited by stiffness/soreness post op. PLAN: Progress transfers Progress gait mobility TREATMENT CODE/TIME: 23min TAx1 TPx1 7:30 Lauren Kim PT
--- NOTE | 2018-08-04 08:18 | W.PM.PROGNOT ---
Date of service: 08/04/18 Time of Service: 08:22 Objective Objective Clinical Data: Abnormal lab results 08/04/18 08/04/18 Range/Units 06:20 06:20 RBC 2.82 L (4.00-5.20) m/cumm Hgb 9.3 L (12.0-15.5) g/dL Hct 28.2 L (36.0-46.0) % MCV 100.0 H (80-95) fL Glucose 155 H (70-100) mg/dL Calcium 8.0 L (8.5-10.1) mg/dL Vital Signs Temp 98.2 F 08/04/18 07:35 Pulse 77 08/04/18 07:35 Resp 17 08/04/18 07:35 BP 110/58 L 08/04/18 07:35 Pulse Ox 97 08/04/18 07:35 Intake & Output 08/03/18 08/03/18 08/04/18 11:59 23:59 11:59 Intake Total 778.000 / 960.705 8570 / 1939 Output Total 300 / 300 700 / 700 Balance 478.000 / 980.226 4027 / 1939 -700 / -700 Weight 152 lb 4.796 oz Intake: IV 778.000 / 912.396 3758 / 1700 Oral 240 / 240 Output: Urine 300 / 300 700 / 700 Other: Urine Color Yellow Dark Sara [place] Urine Appearance Clear Clear Clear Comment INTRAOP. Stool Size Smear Emesis Description None Laboratory Results WBC 7.50 k/cumm (4.4-10.8) 08/04/18 06:20 RBC 2.82 m/cumm (4.00-5.20) L 08/04/18 06:20 Hgb 9.3 g/dL (12.0-15.5) L 08/04/18 06:20 Hct 28.2 % (36.0-46.0) L 08/04/18 06:20 MCV 100.0 fL (80-95) H 08/04/18 06:20 MCH 33.0 pg (27.0-33.0) 08/04/18 06:20 MCHC 33.0 g/dL (32.0-36.0) 08/04/18 06:20 RDW 13.2 % (11.7-14.6) 08/04/18 06:20 Plt Count 196 x1000/uL (130-400) 08/04/18 06:20 MPV 9.6 fL (8.0-11.0) 08/04/18 06:20 Sodium 140 mmol/L (136-145) 08/04/18 06:20 Potassium 4.4 mmol/L (3.5-5.1) 08/04/18 06:20 Chloride 106 mmol/L (98-107) 08/04/18 06:20 Carbon Dioxide 25.7 mmol/L (21.0-32.0) 08/04/18 06:20 Anion Gap 8.3 mmol/L (3-11) 08/04/18 06:20 BUN 15 mg/dL (7-18) 08/04/18 06:20 Creatinine 0.57 mg/dL (0.55-1.02) 08/04/18 06:20 Estimated GFR/1.73 m2 >= 60.00 (mL/min/1.73m2) 08/04/18 06:20 Glucose 155 mg/dL (70-100) H 08/04/18 06:20 Calcium 8.0 mg/dL (8.5-10.1) L 08/04/18 06:20
--- NOTE | 2018-08-04 08:24 | PGE_ITS ---
Date of service: 08/04/18 Time of Service: 08:22 Objective Objective Clinical Data: Abnormal lab results 08/04/18 08/04/18 Range/Units 06:20 06:20 RBC 2.82 L (4.00-5.20) m/cumm Hgb 9.3 L (12.0-15.5) g/dL Hct 28.2 L (36.0-46.0) % MCV 100.0 H (80-95) fL Glucose 155 H (70-100) mg/dL Calcium 8.0 L (8.5-10.1) mg/dL Vital Signs Temp 98.2 F 08/04/18 07:35 Pulse 77 08/04/18 07:35 Resp 17 08/04/18 07:35 BP 110/58 L 08/04/18 07:35 Pulse Ox 97 08/04/18 07:35 Intake & Output 08/03/18 08/03/18 08/04/18 11:59 23:59 11:59 Intake Total 778.000 / 090.714 7076 / 1939 Output Total 300 / 300 700 / 700 Balance 478.000 / 087.497 8710 / 1939 -700 / -700 Weight 152 lb 4.796 oz Intake: IV 778.000 / 050.029 6863 / 1700 Oral 240 / 240 Output: Urine 300 / 300 700 / 700 Other: Urine Color Yellow Dark Sara [place] Urine Appearance Clear Clear Clear Comment INTRAOP. Stool Size Smear Emesis Description None Laboratory Results WBC 7.50 k/cumm (4.4-10.8) 08/04/18 06:20 RBC 2.82 m/cumm (4.00-5.20) L 08/04/18 06:20 Hgb 9.3 g/dL (12.0-15.5) L 08/04/18 06:20 Hct 28.2 % (36.0-46.0) L 08/04/18 06:20 MCV 100.0 fL (80-95) H 08/04/18 06:20 MCH 33.0 pg (27.0-33.0) 08/04/18 06:20 MCHC 33.0 g/dL (32.0-36.0) 08/04/18 06:20 RDW 13.2 % (11.7-14.6) 08/04/18 06:20 Plt Count 196 x1000/uL (130-400) 08/04/18 06:20 MPV 9.6 fL (8.0-11.0) 08/04/18 06:20 Sodium 140 mmol/L (136-145) 08/04/18 06:20 Potassium 4.4 mmol/L (3.5-5.1) 08/04/18 06:20 Chloride 106 mmol/L (98-107) 08/04/18 06:20 Carbon Dioxide 25.7 mmol/L (21.0-32.0) 08/04/18 06:20 Anion Gap 8.3 mmol/L (3-11) 08/04/18 06:20 BUN 15 mg/dL (7-18) 08/04/18 06:20 Creatinine 0.57 mg/dL (0.55-1.02) 08/04/18 06:20 Estimated GFR/1.73 m2 >= 60.00 (mL/min/1.73m2) 08/04/18 06:20 Glucose 155 mg/dL (70-100) H 08/04/18 06:20 Calcium 8.0 mg/dL (8.5-10.1) L 08/04/18 06:20
[2018-08-04] MEDS: Multivitamin w/Minerals TAB 1 TAB PO (08:32)
[2018-08-04] MEDS: POTASSIUM CHLORIDE/D5-0.9%NACL 1,000 ML 125 MEQ IV (08:32)
[2018-08-04] MEDS: Docusate Sodium 100 MG CAP PO ×3 (08:33→17:14)
[2018-08-04] MEDS: Enoxaparin 30 MG/0.3 ML SYR SC ×2 (08:33→21:14)
[2018-08-04] MEDS: Pantoprazole 40 MG TABCR PO (08:33)
[2018-08-04 11:05] VITALS: BP 94/57; PULSE 79; RESP 18; TEMP 37.3; O2SAT 96
--- NOTE | 2018-08-04 11:37 | OT.INIE ---
Occupational Therapy Notes Inpatient Occupational Therapy Evaluation Date: 08/04/18 Referring Doctor: Shane Maxwell MD OT Orders: 58 year old white female. Cementless total hip, left 08/03/18. Bathing and dressing. Precautions: posterior left total hip precautions, WBAT L LE PATIENT PROFILE/ADMITTING DIAGNOSIS: Pt is a 58 year old female s/p (L) cementless total hip on 08/03/[address] Maxwell. Past Medical History: Degenerative joint disease left hip, hypertension, bilateral cataracts, constipation, depression, pelvic enterocele, rectocele, abdominal hysterectomy, ligation fallopian tube, bladder sling. Social History/Home Situation: Pt reports that she lives in a split level ranch home with her . Pt reports two stairs into home with railings. Bathroom set up was recently renovated and pt has walk in shower stall with grab bars. She is an employee of [employer]. Baseline was (I) with all ADLs/ IADLs. Equipment owned/DME: FWW, cane, crutches, raised toilet seat SUBJECTIVE: Patient sitting in chair when OT arrived. ANIMAL SCIENTIST was bringing in a reclining chair per patient's request. Pt agreeable to OT session. OBJECTIVE: General Observation: IV (R) arm, Lorenzo Mental Status: A&0 x3 Pain: 6/10 ROM: RUE WNL AROM L UE WNL AROM STRENGTH: RUE 5/5 throughout LUE 5/5 throughout SENSATION: Pt intact to light touch and sensation for (B) UEs. FUNCTIONAL MOBILITY/ADLS: Tranfers: Sit-Stand SBA Stand-sit SBA, FWW Pt education: Pt educated in hip precautions with handout provided to pt. Pt educated in hip kit adaptive equipment and training in safe techniques and modifications. Pt required minimal verbal cues for education and training but was mod (I) with adaptive equipment donning and doffing socks to LE, dressing LE. Pt denies the need for training in adaptive equipment for bathing and reports that she has a walk in shower. Pt was receptive to Adaptive equipment education and training. BALANCE: Static sitting Normal Dynamic Sitting Normal SPECIAL TESTS: Daily Activity Limitations Standardized Measure [facility] AM -PAC ?6 clicks? Daily Activity Inpatient Short Form: Raw score: 22 Standardized score: 47.10 CMS score: 25.80 CMS modifier: CJ INFORMED CONSENT/EDUCATION: Pt instructed in purpose of OT Consult and plan of care. ASSESSMENT: Patient is a 58-year-old female referred to occupational therapy services with diagnosis of 58 year old white female. Cementless total hip, left 08/03/18. Bathing and dressing, performed by Dr. Maxwell. Pt has PMHX including Degenerative joint disease left hip, hypertension, bilateral cataracts, constipation, depression, pelvic enterocele, rectocele, abdominal hysterectomy, ligation fallopian tube, bladder sling. Pt educated on adaptive equipment and safely demonstrates trained strategies. OT eval only. [facility] score 22, CMS score 25.80%. Patient is assessed as a Low 23842 complexity based on the following: History: See PMHX Examination: see above. Presentation: stable Decision Making: [facility] CMS score 25.80% GOALS: N/A PLAN OF CARE/TREATMENT PLAN: OT eval only, D/C from OT. DISCHARGE RECOMMENDATIONS Home. TREATMENT TIME/MINUTES/CODES 40 min, Mod eval, 08:40 G Codes in the area of self- : washing oneself, toileting, dressing, eating and drinking, current status [id number] projected status GP [id number]. Discharge status (if discharging) GP [id number]
--- NOTE | 2018-08-04 11:59 | OTIE_ITS ---
Occupational Therapy Notes Inpatient Occupational Therapy Evaluation Date: 08/04/18 Referring Doctor: Shane Maxwell MD OT Orders: 58 year old white female. Cementless total hip, left 08/03/18. Bathing and dressing. Precautions: posterior left total hip precautions, WBAT L LE PATIENT PROFILE/ADMITTING DIAGNOSIS: Pt is a 58 year old female s/p (L) cementless total hip on 08/03/[address] Maxwell. Past Medical History: Degenerative joint disease left hip, hypertension, bilateral cataracts, constipation, depression, pelvic enterocele, rectocele, abdominal hysterectomy, ligation fallopian tube, bladder sling. Social History/Home Situation: Pt reports that she lives in a split level ranch home with her . Pt reports two stairs into home with railings. Bathroom set up was recently renovated and pt has walk in shower stall with grab bars. She is an employee of [employer]. Baseline was (I) with all ADLs/ IADLs. Equipment owned/DME: FWW, cane, crutches, raised toilet seat SUBJECTIVE: Patient sitting in chair when OT arrived. STRUCTURAL TEST ENGINEER was bringing in a reclining chair per patient's request. Pt agreeable to OT session. OBJECTIVE: General Observation: IV (R) arm, Lorenzo Mental Status: A&0 x3 Pain: 6/10 ROM: RUE WNL AROM L UE WNL AROM STRENGTH: RUE 5/5 throughout LUE 5/5 throughout SENSATION: Pt intact to light touch and sensation for (B) UEs. FUNCTIONAL MOBILITY/ADLS: Tranfers: Sit-Stand SBA Stand-sit SBA, FWW Pt education: Pt educated in hip precautions with handout provided to pt. Pt educated in hip kit adaptive equipment and training in safe techniques and modifications. Pt required minimal verbal cues for education and training but was mod (I) with adaptive equipment donning and doffing socks to LE, dressing LE. Pt denies the need for training in adaptive equipment for bathing and reports that she has a walk in shower. Pt was receptive to Adaptive equipment education and training. BALANCE: Static sitting Normal Dynamic Sitting Normal SPECIAL TESTS: Daily Activity Limitations Standardized Measure [facility] AM -PAC ?6 clicks? Daily Activity Inpatient Short Form: Raw score: 22 Standardized score: 47.10 CMS score: 25.80 CMS modifier: CJ INFORMED CONSENT/EDUCATION: Pt instructed in purpose of OT Consult and plan of care. ASSESSMENT: Patient is a 58-year-old female referred to occupational therapy services with diagnosis of 58 year old white female. Cementless total hip, left 08/03/18. Bathing and dressing, performed by Dr. Maxwell. Pt has PMHX including Degenerative joint disease left hip, hypertension, bilateral cataracts , constipation, depression, pelvic enterocele, rectocele, abdominal hysterectomy , ligation fallopian tube, bladder sling. Pt educated on adaptive equipment and safely demonstrates trained strategies. OT eval only. [facility] score 22, CMS score 25.80%. Patient is assessed as a Low 35762 complexity based on the following: History: See PMHX Examination: see above. Presentation: stable Decision Making: [facility] CMS score 25.80% GOALS: N/A PLAN OF CARE/TREATMENT PLAN: OT eval only, D/C from OT. DISCHARGE RECOMMENDATIONS Home. TREATMENT TIME/MINUTES/CODES 40 min, Mod eval, 08:40 G Codes in the area of self- : washing oneself, toileting, dressing, eating and drinking, current status [id number] projected status GP [id number]. Discharge status (if discharging) GP [id number]
--- NOTE | 2018-08-04 13:24 | PDOC.CMIN ---
Care Management Initial Assess REASON FOR HOSPITALIZATION:: s/p L JIMMY PAST MEDICAL HISTORY/PAST SURGICAL HISTORY:: Medical: HTN, OA L hip, constipation, depression, pelvic enterocele, rectocele. Surgical: abdominal hysterectomy, cataract extraction, ligation of fallopian tube, bladder sling. PREVIOUS FUNCTIONAL STATUS/SOCIAL/FAMILY SUPPORTS:: Kaci is 58 yo woman who lives with her Edward in their home in [place]. They have adult children who live locally. 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 She is usually active and independent. CURRENT FUNCTIONAL STATUS:: She is sitting up in a chair, is visiting. Has already been up walking with walker. She easily engages in discussion re plans. ADVANCE DIRECTIVES:: does not have document but was given information at preop visit. Has patient been provided with information about the portal?: Yes Did the patient sign up for the portal?: No CODE STATUS:: Full Code INSURANCE COVERAGE / FINANCIAL ISSUES:: [employer] CURRENT HOME/COMMUNITY SERVICES/EQUIPMENT:: No current services or equipment used. She does have walker, cane and crutches to use at home when needed, and will borrow a bath bench for her shower. PRIMARY CARE PHYSICIAN:: Liborio Rodriguez MD POTENTIAL DISCHARGE NEEDS:: If she needs formal PT on d/c she will go to OP PT. Will need follow-up with Dr Maxwell as directed. PATIENT/FAMILY EDUCATION NEEDS:: Review d/c instructions re meds and activity levels. Review Ask me Three questions to assure patient understanding of reason for hospitalization and how to manage care after discharge. ANTICIPATED BARRIERS TO DISCHARGE:: None identified TRANSPORTATION:: via car with Edward. PLAN:: d/c home as per MD with OP PT if needed.
--- NOTE | 2018-08-04 13:56 | PT.INTREAT ---
Date of service: 08/04/18 Time of Service: 13:24 PT Notes Date: 08/04/18 PRECAUTIONS: posterior total hip precautions, WBAT L LE SUBJECTIVE: Pt sitting in chair after lunch, agreeable to therapy session then wanting to get to bed to rest. Pt would like castellano catheter removed this afternoon, RN notified. OBJECTIVE General observation: IV R UE, castellano catheter PAIN: mild stiffness reported left hip BED MOBILITY/TRANSFERS Sit-stand: supervision with FWW Stand-sit: supervision Sit-supine: HOB flat, minAX1 GAIT Assistive Device: FWW Weight bearing: WBAT L LE Assist: supervision Distance: 150ft Deviation: step through gait pattern with steady stride and wyatt. STAIRS instructed in up/down 5 steps with railing supervision, step to step sequence WBAT L LE THEREX: Performed ankle pumps, quad sets, glute sets x 20 reps, long arc quads x10 reps ASSESSMENT: Pt able to increase gait distance and progress to stair training this afternoon, reports slight stiffness in hip but loosens up with mobility. PLAN: Progress transfers Progress gait mobility TREATMENT CODE/TIME: 25min TAx1 TPx1 1323 Lauren Kim PT
--- NOTE | 2018-08-04 14:49 | CHAPLAIN ---
Kaci was sitting up in her chair when I visited. She told me about her hip surgery. She works at [employer] and will be out until mid-September. She has family members visiting her while she is here. I explained my role and offered support. She seems to be comfortable being here.
--- NOTE | 2018-08-04 15:07 | PHARADMIT ---
Addendum entered by Anita Roy 08/05/18 14:11: Pharmacy Note Subjective post op hip repair, possible discharge tomorrow Objective temp 37.8, pain 2/10, h/h 8.5/26.7 Assessment meds all PO Plan follow pain control and h/h Original Note: Admission Pharmacy Clinical Review MARCIA (L)HIP Code Status Full Code Current Weight 69.082 kg Renally Cleared and Narrow Therapeutic Index Meds CRCL ~63ML/MIN QTc Value / Action Taken BP Control, Fever 94/57 AFEBRILE Electrolytes reviewed OK DVT Prophylaxis ENOXAPARIN Opiate Usage / Scheduled Bowel Regimen Ordered PRN/PRN Plt/SCr for Heparin / Enoxaparin 196/0.57 INR for Warfarin NA H/H stable, WBC/Bands 9.3/28.2 wbc 7.5 Antibiotic appropriateness na Cultures and Sensitivities na Surgical ABX d/c within 24 hr yes DM control / Insulin Dosing na Heart Failure (Check EF%) (JUSTO's, B-Block, Diuretics) na IV to PO Switch IVF, IV pain meds Home Meds Reviewed ok Home Meds Not Ordered Slim Quick 1 tab PO DAILY 09/06/15 [History Confirmed 08/03/18] lisinopril 10 mg PO HS 07/29/18 [History Confirmed 08/03/18] Comments
[2018-08-04] MEDS: Venlafaxine 37.5 MG CAPCR 75 MG PO (21:14)
[2018-08-05 01:10] VITALS: BP 108/73; PULSE 79; RESP 16; TEMP 36.7; O2SAT 99
[2018-08-05] MEDS: Ibuprofen 600 MG TAB PO ×2 (01:17→10:05)
[2018-08-05] MEDS: HYDROcodone 5/Acetaminophen 325 TAB PO ×2 (06:02→14:34)
[2018-08-05 07:18] LABS: HCT 26.7 % (36.0-46.0); HGB 8.5 g/dL (12.0-15.5); Mean Corp. HGB Concentration 31.8 g/dL (32.0-36.0); Mean Corpuscular Hemoglobin 32.4 pg (27.0-33.0); Mean Corpuscular Volume 101.9 fL (80-95); Mean Platelet Volume 8.8 fL (8.0-11.0); Platelet Count 168 x1000/uL (130-400); RBC 2.62 m/cumm (4.00-5.20); RBC Distribution Width 13.7 % (11.7-14.6); White Blood Cell Count 7.29 k/cumm (4.4-10.8)
[2018-08-05 07:25] VITALS: BP 94/59; PULSE 85; RESP 20; TEMP 37.5; O2SAT 97
[2018-08-05 07:38] LABS: Anion Gap 6.8 mmol/L (3-11); BUN 11 mg/dL (7-18); CO2 27.2 mmol/L (21.0-32.0); CREATININE 0.44 mg/dL (0.55-1.02); Calcium 8.4 mg/dL (8.5-10.1); Chloride 107 mmol/L (98-107); Glucose 128 mg/dL (70-100); Potassium 4.1 mmol/L (3.5-5.1); Sodium 141 mmol/L (136-145)
[2018-08-05] MEDS: Enoxaparin 30 MG/0.3 ML SYR SC ×2 (07:49→20:19)
[2018-08-05] MEDS: Docusate Sodium 100 MG CAP PO (07:50)
[2018-08-05] MEDS: Pantoprazole 40 MG TABCR PO (07:50)
[2018-08-05] MEDS: Multivitamin w/Minerals TAB 1 TAB PO (07:50)
--- NOTE | 2018-08-05 07:53 | PT.INDS ---
Date of service: 08/05/18 Time of Service: 07:53 PT Notes Inpatient Physical Therapy Discharge Summary Dates: 08/05/18 Dates of Service: 08/03/18-08/05/18 SUBJECTIVE: Pt states she walked the entire loop last night. States she feels she is moving well and has been going to the bathroom independently. OBJECTIVE: General Observation: abduction pillow, ice pack left hip, dressing left hip, IV RUE Pain: no c/o pain Bed Mobility/Transfers: supine-sit: independent Sit-stand: independent Stand-sit: independent Chair-bathroom: independent with FWW Bathroom -chair: independent with FWW Gait: independent with FWW 300ft WBAT L LE. Therex: Independent with home exercise program for JIMMY Precautions: independent with JIMMY precautions Balance: Static Sitting: normal Dynamic Sitting: normal Static Standing: good Dynamic Standing: fair Assessment: Pt is a 58yr old female s/p left total hip arthroplasty by Dr. Maxwell 08/03/18. Pt was seen for 4 PT visits. Progressed from Kristel bed transfers to independent, from SBA standing transfers to independent, from SBA gait with FWW 20ftx2 to independent gait with FWW 300ft, supervision up/down 5 steps. Pt has met therapy goals and is ready for discharge to home setting when medically cleared. Pt is cleared to mobilize independent with FWW in room until discharge. Goals: Goals X1 week 1. Supine-Sit independent 2. Sit-Supine independent 3. Sit-Stand supervision with FWW 4. Stand-Sit supervision with FWW 5. Bed-Chair supervision with FWW 6. Chair-Bed supervision with FWW 7. Gait supervision with FWW 80ftx2, WBAT L LE 8. Stairs up/down 2 steps with railing, SBA WBAT L LE 9. Independent with home exercise program for JIMMY Pt met goals # 1-9 DISCHARGE RECOMMENDATIONS: Home, has all DME TREATMENT CODE/TIME: 23min TAx1 7:45 G Codes in the area mobility of walking and moving around; projected status GP [id number]. Discharge status (if discharging) GP [id number] ck Lauren Kim PT .
[2018-08-05 08:15] VITALS: O2SAT 97
--- NOTE | 2018-08-05 09:06 | PGE_ITS ---
Assessment and Plan (1) Encounter for postoperative care: Current visit: Yes Status: Acute Status post left cementless total hip arthroplasty patient doing extremely well. Mild post surgical anemia will respond to multivitamins and time. Patient may be up to the shower this afternoon. We will DC the IV fluids as she is taking well by mouth. She has no orthostatic changes. Discharge home tomorrow if all continues to go well. Patient's was present for this discussion and review of clinical findings today. Exam Const Other: Patient continues to feel well. She got up in the middle of the night and spent the rest of the evening in her lounge chair. She has no chest pain pressure or shortness of breath. Pain level is reported at 1. No burning or dysuria while using the toilet. Extrem General: normal to inspection Other: Left hip wound is benign. There is no sign of any active bleed. Skin incision margins look great. We will place a light layer of gauze on the incision and allow the patient to get into the shower this afternoon and the wound may be left open to the air thereafter. Hemoglobin today is 8.5 electrolytes are within normal limits. The patient had a systolic blood pressure of 117 overnight but is 97 this morning and therefore I will hold her lisinopril. Objective Objective Clinical Data: Abnormal lab results 08/05/18 08/05/18 Range/Units 07:00 07:00 RBC 2.62 L (4.00-5.20) m/cumm Hgb 8.5 L (12.0-15.5) g/dL Hct 26.7 L (36.0-46.0) % MCV 101.9 H (80-95) fL MCHC 31.8 L (32.0-36.0) g/dL Creatinine 0.44 L (0.55-1.02) mg/dL Glucose 128 H (70-100) mg/dL Calcium 8.4 L (8.5-10.1) mg/dL Vital Signs Temp 99.5 F 08/05/18 07:25 Pulse 85 08/05/18 07:25 Resp 20 08/05/18 07:25 BP 94/59 L 08/05/18 07:25 Pulse Ox 97 08/05/18 07:25 Intake & Output 08/04/18 08/04/18 08/05/18 11:59 23:59 11:59 Intake Total 1685 / 1685 880 / 880 Output Total 700 / 700 800 / 800 350 / 350 Balance 985 / 985 80 / 80 -350 / -350 Intake: IV 1325 / 1325 Oral 360 / 360 880 / 880 Output: Urine 700 / 700 800 / 800 350 / 350 Other: Urine Color Dark Sara Yellow [place] Urine Appearance Clear Clear Clear Stool Size Smear Laboratory Results WBC 7.29 k/cumm (4.4-10.8) 08/05/18 07:00 RBC 2.62 m/cumm (4.00-5.20) L 08/05/18 07:00 Hgb 8.5 g/dL (12.0-15.5) L 08/05/18 07:00 Hct 26.7 % (36.0-46.0) L 08/05/18 07:00 MCV 101.9 fL (80-95) H 08/05/18 07:00 MCH 32.4 pg (27.0-33.0) 08/05/18 07:00 MCHC 31.8 g/dL (32.0-36.0) L 08/05/18 07:00 RDW 13.7 % (11.7-14.6) 08/05/18 07:00 Plt Count 168 x1000/uL (130-400) 08/05/18 07:00 MPV 8.8 fL (8.0-11.0) 08/05/18 07:00 Sodium 141 mmol/L (136-145) 08/05/18 07:00 Potassium 4.1 mmol/L (3.5-5.1) 08/05/18 07:00 Chloride 107 mmol/L (98-107) 08/05/18 07:00 Carbon Dioxide 27.2 mmol/L (21.0-32.0) 08/05/18 07:00 Anion Gap 6.8 mmol/L (3-11) 08/05/18 07:00 BUN 11 mg/dL (7-18) 08/05/18 07:00 Creatinine 0.44 mg/dL (0.55-1.02) L 08/05/18 07:00 Estimated GFR/1.73 m2 >= 60.00 (mL/min/1.73m2) 08/05/18 07:00 Glucose 128 mg/dL (70-100) H 08/05/18 07:00 Calcium 8.4 mg/dL (8.5-10.1) L 08/05/18 07:00
[2018-08-05 11:15] VITALS: BP 110/67; PULSE 92; RESP 20; TEMP 37.8; O2SAT 97
--- NOTE | 2018-08-05 13:38 | PDOC.CMPRO ---
- If Service Date Differs Date of service: 08/05/18 Time of Service: 13:38 Care Management Progress Note S/O: Kaci is sitting in her recliner with , Edward at bedside when CM visits. She is engaged in conversation, makes good eye contact and is talkative. Kaci reports that her pain is minimal and that she has been ambulating independently in the hallways and her room with a walker. She reports that she was unable to sleep but has since been provided a recliner in which she is comfortable and able to rest. Kaci has a walker at home so will not be needing one upon discharge. A: 58 year old female p/o day 2 DJD left hip P: Kaci will discharge home when medically ready per MD. Anticipate pt will discharge home with no services and follow up with MD in two weeks. Kaci with transport via private vehicle with , Edward. CM will continue to provide support to patient, family and care team regarding discharge planning and disposition.
[2018-08-05 16:39] VITALS: BP 108/72; PULSE 103; RESP 18; TEMP 37.1; O2SAT 97
[2018-08-05] MEDS: Venlafaxine 37.5 MG CAPCR 75 MG PO (20:19)
[2018-08-05 23:59] VITALS: BP 96/61; PULSE 109; RESP 18; TEMP 38.4; O2SAT 95
[2018-08-06] MEDS: Acetaminophen 325 MG TAB 650 MG PO ×2 (01:40→07:52)
[2018-08-06 03:27] VITALS: BP 99/65; PULSE 94; RESP 18; TEMP 37.6; O2SAT 96
[2018-08-06 07:25] VITALS: BP 111/74; PULSE 98; RESP 18; TEMP 37.3; O2SAT 96
[2018-08-06] MEDS: Enoxaparin 30 MG/0.3 ML SYR SC (07:51)
[2018-08-06] MEDS: Multivitamin w/Minerals TAB 1 TAB PO (07:52)
[2018-08-06] MEDS: Docusate Sodium 100 MG CAP PO (07:52)
[2018-08-06] MEDS: Pantoprazole 40 MG TABCR PO (07:52)
--- NOTE | 2018-08-06 07:58 | W.PM.PROGNOT ---
Date of service: 08/06/18 Time of Service: 07:59 Assessment and Plan (1) Encounter for postoperative care: Start date: 08/06/18 Current visit: Yes Status: Acute Discharge home. Instructions discussed. Exam Extrem Other: Generally doing well. Ready to go home. Has a headache which appears to be caffeine withdrawal. No chest pain, pressure or wshortness of breath. Objective Objective Clinical Data: Vital Signs Temp 99.1 F 08/06/18 07:25 Pulse 98 H 08/06/18 07:25 Resp 18 08/06/18 07:25 BP 111/74 08/06/18 07:25 Pulse Ox 96 08/06/18 07:25 Intake & Output 08/05/18 08/05/18 08/06/18 11:59 23:59 11:59 Intake Total 926 / 926 740 / 740 100 / 100 Output Total 350 / 350 1700 / 1700 1050 / 1050 Balance 576 / 576 -960 / -960 -950 / -950 Intake: IV 676 / 676 Oral 250 / 250 740 / 740 100 / 100 Output: Urine 350 / 350 1700 / 1700 1050 / 1050 Other: Urine Color Yellow Yellow Urine Appearance Clear Clear Clear Urine Odor Normal Normal Comment pt up multiple times to void throughout the night Stool Size Small Stool Characteristics Formed Voiding Methods Toilet Toilet Laboratory Results WBC 7.29 k/cumm (4.4-10.8) 08/05/18 07:00 RBC 2.62 m/cumm (4.00-5.20) L 08/05/18 07:00 Hgb 8.5 g/dL (12.0-15.5) L 08/05/18 07:00 Hct 26.7 % (36.0-46.0) L 08/05/18 07:00 MCV 101.9 fL (80-95) H 08/05/18 07:00 MCH 32.4 pg (27.0-33.0) 08/05/18 07:00 MCHC 31.8 g/dL (32.0-36.0) L 08/05/18 07:00 RDW 13.7 % (11.7-14.6) 08/05/18 07:00 Plt Count 168 x1000/uL (130-400) 08/05/18 07:00 MPV 8.8 fL (8.0-11.0) 08/05/18 07:00 Sodium 141 mmol/L (136-145) 08/05/18 07:00 Potassium 4.1 mmol/L (3.5-5.1) 08/05/18 07:00 Chloride 107 mmol/L (98-107) 08/05/18 07:00 Carbon Dioxide 27.2 mmol/L (21.0-32.0) 08/05/18 07:00 Anion Gap 6.8 mmol/L (3-11) 08/05/18 07:00 BUN 11 mg/dL (7-18) 08/05/18 07:00 Creatinine 0.44 mg/dL (0.55-1.02) L 08/05/18 07:00 Estimated GFR/1.73 m2 >= 60.00 (mL/min/1.73m2) 08/05/18 07:00 Glucose 128 mg/dL (70-100) H 08/05/18 07:00 Calcium 8.4 mg/dL (8.5-10.1) L 08/05/18 07:00 Objective Narrative Objective Narrative: T max 99.3 Vital signs stable but mild hypotension persists secondary to blood loss at surgery. Wound has mild amount of serosanguinous drainage, about enough to saturate a single 4 x 4. No signs of infection. No signs of dvt.No orthostatic complaints. Intake and output good. Ambulating independently
--- NOTE | 2018-08-06 08:12 | W.PM.DS.N ---
DS: Diagnosis Discharge Diagnosis (1) Encounter for postoperative care: Status: Acute Discharge Plan Disposition Patient Disposition: HOME Condition: Improving Discharge Details Reason For Visit: DJD (L) HIP Admit Date/Time: 08/03/18 10:37 Admit Provider: Shane Maxwell Attending Provider: Shane Maxwell Primary Care Provider: [facility] Hospital Course: Patient's post op course unremarkable. She was maintained on prophylactic antibiotics for 24 hours. Lovenox dvt prophylaxis started on 07/04/18 Ambulated independently with physical therapy, Patient had mild to moderate surgical anemia so lisinopril will be held for the immediate perioperative period. Patient on multiple vitamin to build up blood count. At the time of discharge she was able to ambulate independently weight bearing as tlerated with walker. Home Meds and New Rx's Prescriptions: New hydrocodone-acetaminophen 5-325 mg Tablet 1 - 2 tab PO Q3H PRN PRN (Reason: Pain) Qty: 18 RF: 0 Continue venlafaxine [Effexor XR] 75 MG capsule,extended release 24hr 75 mg PO HS RF: 0 acetaminophen [Acetaminophen Extra Strength] 500 MG tablet 2 tab PO PRN PRNRF: 0 multivitamin [Daily Multi-Vitamin] 1 EACH tablet 1 tab PO DAILY RF: 0 ibuprofen 600 mg Tablet 600 mg PO QID PRNRF: 0 No Action Slim Quick 1 tab PO DAILY RF: 0 lisinopril 10 mg Tablet 10 mg PO HS RF: 0 Discharge Instructions Instructions: Total Hip Replacement (DC) Additional Instructions: Use your new hip.Take multiple short walks during the day. You may place your full weight upon it. Use your walker for balance and to prevent falls. Avoid crossing your legs and very low chairs where your hip would be lower than your knees. Use your elastic stockings during the day. They may be off at night. Using baby powder will make it easier to place them on. Take your usual medications as before. However do not take your lisinopril for several days until your blood pressure starts to rise Take your multiple vitamin daily. Take a baby aspirin (81 mg) twice daily for the next 2 weeks. This helps prevent blood clots. Take ibuprofen and tylenol for milder pain. They may be taken at the same time as they are metabolized differently and are not cross toxic. Take norco (hydrocodone 5/325mg) 1-2 tablets every 4-6 hours for more serious pain. [facility] regulations limit the number of tablets to 18. You may get your incision wet in the shower with soap and water. Gently pat the kurt dry and cover them with gauze if there is any drainage or if the kurt catch on your clothing. Otherwise you may leave the wound open to the air. Expect some blood tinged (or yellowish) drainage from the wound for the next 2-3 days. If this does not stop, contact . Follow-up with Dr. Maxwell in 1 week for staple removal. You should be contacted on Wednesday07/08/18 with the exact date and timeof that appointment. The office number is [phone] if you do not hear from Mary Jane. Stand Alone Forms: Nursing Discharge Form Referrals: Shane Maxwell MD [ [facility] STAFF PHYSICIAN] - Activity:: Activity as Tolerated Equipment/Supplies:: Walker Discharge Orders Discharge Orders: Discharge Order (Routine); Ordered 08/06/18 Ordered By: Shane Maxwell Exam Extrem General: normal to inspection Other: All systemsok DS: Data Vitals/I&O Vitals and I&O: Vital Signs Temp 99.1 F 08/06/18 07:25 Pulse 98 H 08/06/18 07:25 Resp 18 08/06/18 07:25 BP 111/74 08/06/18 07:25 Pulse Ox 96 08/06/18 07:25 Intake & Output 08/05/18 08/05/18 08/06/18 11:59 23:59 11:59 Intake Total 926 / 926 740 / 740 100 / 100 Output Total 350 / 350 1700 / 1700 1050 / 1050 Balance 576 / 576 -960 / -960 -950 / -950 Intake: IV 676 / 676 Oral 250 / 250 740 / 740 100 / 100 Output: Urine 350 / 350 1700 / 1700 1050 / 1050 Other: Urine Color Yellow Yellow Urine Appearance Clear Clear Clear Urine Odor Normal Normal Comment pt up multiple times to void throughout the night Stool Size Small Stool Characteristics Formed Voiding Methods Toilet Toilet
--- NOTE | 2018-08-06 08:34 | DSE_ITS ---
DS: Diagnosis Discharge Diagnosis (1) Encounter for postoperative care: Status: Acute Discharge Plan Disposition Patient Disposition: HOME Condition: Improving Discharge Details Reason For Visit: DJD (L) HIP Admit Date/Time: 08/03/18 10:37 Admit Provider: Shane Maxwell Attending Provider: hSane Maxwell Primary Care Provider: [facility] Course Hospital Course: Patient's post op course unremarkable. She was maintained on prophylactic antibiotics for 24 hours. Lovenox dvt prophylaxis started on 07/04/18 Ambulated independently with physical therapy, Patient had mild to moderate surgical anemia so lisinopril will be held for the immediate perioperative period. Patient on multiple vitamin to build up blood count. At the time of discharge she was able to ambulate independently weight bearing as tlerated with walker. Home Meds and New Rx's Prescriptions: New hydrocodone-acetaminophen 5-325 mg Tablet 1 - 2 tab PO Q3H PRN PRN (Reason: Pain) Qty: 18 RF: 0 Continue venlafaxine [Effexor XR] 75 MG capsule,extended release 24hr 75 mg PO HS RF: 0 acetaminophen [Acetaminophen Extra Strength] 500 MG tablet 2 tab PO PRN PRNRF: 0 multivitamin [Daily Multi-Vitamin] 1 EACH tablet 1 tab PO DAILY RF: 0 ibuprofen 600 mg Tablet 600 mg PO QID PRNRF: 0 No Action Slim Quick 1 tab PO DAILY RF: 0 lisinopril 10 mg Tablet 10 mg PO HS RF: 0 Discharge Instructions Instructions: Total Hip Replacement (DC) Additional Instructions: Use your new hip.Take multiple short walks during the day. You may place your full weight upon it. Use your walker for balance and to prevent falls. Avoid crossing your legs and very low chairs where your hip would be lower than your knees. Use your elastic stockings during the day. They may be off at night. Using baby powder will make it easier to place them on. Take your usual medications as before. However do not take your lisinopril for several days until your blood pressure starts to rise Take your multiple vitamin daily. Take a baby aspirin (81 mg) twice daily for the next 2 weeks. This helps prevent blood clots. Take ibuprofen and tylenol for milder pain. They may be taken at the same time as they are metabolized differently and are not cross toxic. Take norco (hydrocodone 5/325mg) 1-2 tablets every 4-6 hours for more serious pain. [facility] regulations limit the number of tablets to 18. You may get your incision wet in the shower with soap and water. Gently pat the kurt dry and cover them with gauze if there is any drainage or if the kurt catch on your clothing. Otherwise you may leave the wound open to the air. Expect some blood tinged (or yellowish) drainage from the wound for the next 2-3 days. If this does not stop, contact . Follow-up with Dr. Maxwell in 1 week for staple removal. You should be contacted on Wednesday with the exact date and timeof that appointment. The office number is [phone] if you do not hear from Mary Jane. Stand Alone Forms: Nursing Discharge Form Referrals: Shane Maxwell MD [ [facility] STAFF PHYSICIAN] - Activity:: Activity as Tolerated Equipment/Supplies:: Walker Discharge Orders Discharge Orders: Discharge Order (Routine); Ordered 08/06/18 Ordered By: Shane Maxwell Exam Extrem General: normal to inspection Other: All systemsok DS: Data Vitals/I&O Vitals and I&O: Vital Signs Temp 99.1 F 08/06/18 07:25 Pulse 98 H 08/06/18 07:25 Resp 18 08/06/18 07:25 BP 111/74 08/06/18 07:25 Pulse Ox 96 08/06/18 07:25 Intake & Output 08/05/18 08/05/18 08/06/18 11:59 23:59 11:59 Intake Total 926 / 926 740 / 740 100 / 100 Output Total 350 / 350 1700 / 1700 1050 / 1050 Balance 576 / 576 -960 / -960 -950 / -950 Intake: IV 676 / 676 Oral 250 / 250 740 / 740 100 / 100 Output: Urine 350 / 350 1700 / 1700 1050 / 1050 Other: Urine Color Yellow Yellow Urine Appearance Clear Clear Clear Urine Odor Normal Normal Comment pt up multiple times to void throughout the night Stool Size Small Stool Characteristics Formed Voiding Methods Toilet Toilet
--- NOTE | 2018-08-06 13:25 | PDOC.CMDIS ---
- If Service Date Differs Date of service: 08/06/18 Time of Service: 13:25 LACE Index Scoring Tool - Questions: Length of Stay (in days): 4 - 6 Acuity (Admit via E.D.?): No E.D. Visits: 0 - Answers: Total Score: 4 Risk of Readmission: Low Risk Care Management Discharge Reason for Hospitalization: s/p L JIMMY Discharge Plan: Return home with no services. Kaci will F/U with Dr. Maxwell and plan of care as prescribed. her Edward will transport home. Patient/Family Education Needs: Review DC instructions, any limitations, and discuss Ask Me Three
== END 2018-08-06 09:21 | disposition home or self-care (01) | DRG 470 ==
LOC: MS 12:25
PROVIDERS: Admitting Provider Orthopaedic Surgery; PCP Internal Medicine; Visit Provider Orthopaedic Surgery
PROC: 0SRB04A Replacement of Left Hip Joint with Ceramic on Polyethylene Synthetic Substitute, Uncemented, Open Approach (ICD-10-PCS; CPT 27130; principal; 2018-08-03 07:30)
DX: M16.12 Unilateral primary osteoarthritis, left hip (principal); D62 Acute posthemorrhagic anemia; Z96.642 Presence of left artificial hip joint; I10 Essential (primary) hypertension; F32.9 Major depressive disorder, single episode, unspecified; Y83.1 Surgical operation with implant of artificial internal device as the cause of abnormal reaction of the patient, or of later complication, without mention of misadventure at the time of the procedure
CPT/HCPCS: 27130; 36415; 80048; 85027; 97110; 97162; 97165; 97530; NC; 72170; J0131; J0690; J1100; J1650; J1885; J2250; J2370; J2405; J3010

== ENCOUNTER 2018-10-04 13:47 | Outpatient (CLI) | payer OTHER, SELFPAY ==
--- NOTE | 2018-10-04 10:58 | DI.RAD_ITS ---
SYMPTOM/DIAGNOSIS: F/U LT HIP REPLACEMENT AP PELVIS: The patient is status post left JIMMY. The prosthesis is in excellent position. Surrounding bone intact as judged from this single frontal projection.
== END 2018-10-04 14:07 ==
PROVIDERS: PCP Internal Medicine; Visit Provider Orthopaedic Surgery
DX: Z96.642 Presence of left artificial hip joint (principal); Z47.1 Aftercare following joint replacement surgery
CPT/HCPCS: 72170

== ENCOUNTER 2018-12-05 12:26 | Outpatient (REF) | payer OTHER, SELFPAY ==
[2018-12-05 13:37] LABS: Clarity Sl Cloudy
[2018-12-05 13:39] LABS: Glucose Negative (Negative)
[2018-12-05 13:40] LABS: Blood Trace (Negative)
[2018-12-05 13:42] LABS: Bacteria Moderate HPF (Negative); C & S Indicated? C&S Done As Ordered; Casts Negative LPF (Negative); Crystals Negative HPF (Negative); Epithelial Cells Rare HPF (Negative); Mucus Negative (Negative); WBC 20-50 HPF (0-5)
== END 2018-12-05 12:46 ==
LOC: NCHCN 12:26
PROVIDERS: PCP Internal Medicine; Visit Provider Nurse Practitioner
DX: R35.0 Frequency of micturition (principal); R31.9 Hematuria, unspecified
CPT/HCPCS: 87077; 81003; 81015; 87086; 87186

== ENCOUNTER 2019-09-30 08:06 | Emergency (ER) | payer OTHER, SELFPAY ==
[2019-09-30 08:16] VITALS: BP 154/92; PULSE 82; RESP 18; TEMP 37.1; O2SAT 100
--- NOTE | 2019-09-30 08:28 | ED.GENADUL_ITS ---
Discharge Plan Disposition Patient Disposition: HOME Condition: Good Discharge Details Chief Complaint: Urinary Clinical Impression: UTI (urinary tract infection) Primary Care Provider: Blu Rodriguez ED Provider: Savanah Rodriguez Home Meds and New Rx's Prescriptions: New phenazopyridine [Pyridium] 100 mg tablet 100 mg PO TID PRN (Reason: pain) Qty: 6 RF: 0 cephalexin [Keflex] 500 mg capsule 500 mg PO BID Qty: 8 RF: 0 Continued venlafaxine [Effexor XR] 75 MG capsule,extended release 24hr 75 mg PO HS RF: 0 acetaminophen [Acetaminophen Extra Strength] 500 MG tablet 2 tab PO PRN PRNRF: 0 Slim Quick 1 tab PO DAILY RF: 0 multivitamin [Daily Multi-Vitamin] 1 EACH tablet 1 tab PO DAILY RF: 0 lisinopril 10 mg Tablet 10 mg PO HS RF: 0 ibuprofen 600 mg Tablet 600 mg PO QID PRNRF: 0 Discharge Instructions Instructions: Urinary Tract Infection in Women (ED) Additional Instructions: Encourage hydration. Please take the Keflex as prescribed. Even if symptoms improve, please take the entire course. You may use Pyridium as prescribed to help with symptom medic management. If symptoms are not improving by the middle of the week, please follow-up with primary care. If you develop back pain, fever/chills or other new/worsening symptoms please seek care urgently once again. Referrals: Blu Rodriguez MD [Primary Care Provider] - Medical Decision Making Patient is a 59-year-old female presenting today with concerns of UTI. She reports that she woke this morning noting dysuria, increased frequency and urgency. States that she is also noted pink-tinged urine. Reports that this feels like when she has had a UTI historically, has not had one in several years. She denies any fevers or chills. Denies any back pain. Denies any vaginal discharge. No change in bowel habits. On exam, patient is resting comfortably. No CVA tenderness. Abdomen is benign. Plan to obtain analysis. UA positive for blood, small amount of leukocyte esterace. Plan to treat with Keflex. Offered pyridium to help with symptomatic management. She as given return precautions. Advised f/u with PCP if not improved in one week. All quesitons and concerns were addressed, she is in agreement with this plan. HPI General Mode of arrival: ambulatory . Date/Time Provider Initiated Documentation: 09/30/19 08:28 . Limitations to Documentation: no limitations . Information obtained by: patient and RN notes reviewed . History of Present Illness 59 year old F presents to the emergency department with the chief complaint of concerns for UTI, described as moderate, Quality is described as burning (with urination), Patient reports no radiation; denies radiation to back. Patient started experiencing this hour(s) and it has been constant. No relieving factors improve symptom(s), No exacerbating factors reported . Patient notes no other symptoms.. Patient did receive the following treatments prior to arrival, none Related Data Home Medications Medication Instructions Recorded Confirmed Slim Quick 1 tab PO DAILY 09/06/15 12/15/18 acetaminophen [Acetaminophen Extra 2 tab PO PRN PRN 09/06/15 09/30/19 Strength] venlafaxine [Effexor XR] 75 mg PO HS 09/06/15 09/30/19 multivitamin [Daily Multi-Vitamin] 1 tab PO DAILY 09/12/15 09/30/19 lisinopril 10 mg PO HS 07/29/18 09/30/19 ibuprofen 600 mg PO QID PRN 08/03/18 09/30/19 cephalexin [Keflex] 500 mg PO BID #8 cap 09/30/19 phenazopyridine [Pyridium] 100 mg PO TID PRN #6 tab 09/30/19 Previous Rx's Medication Instructions Recorded cephalexin [Keflex] 500 mg PO BID #8 cap 09/30/19 phenazopyridine [Pyridium] 100 mg PO TID PRN #6 tab 09/30/19 Allergies Allergy/AdvReac Type Severity Reaction Status Date / Time No Known Allergies Allergy Unverified 09/30/19 08:18 General Stated Complaint: Urinary KO: 4 Review of Systems Constitutional Constitutional: Reports as per HPI, Denies chills, Denies fever(s) and Denies poor appetite Cardiovascular Cardiovascular: Denies chest pain Respiratory Respiratory: Denies cough Gastrointestinal Gastrointestinal: Denies abdominal pain, Denies change in bowel habits, Denies nausea and Denies vomiting Genitourinary Genitourinary: Reports as per HPI Musculoskeletal Musculoskeletal: Reports as per HPI and Denies back pain Integumentary/Breasts Skin/Breast: Reports as per HPI and Denies rash [facility] Medical History Cataracts, bilateral Constipation Depression Encounter for postoperative care (Acute) Status post left cementless total hip arthroplasty. Patient is generally doing well and is improved from her last visit. It is unclear as to whether or not she will be ready to return to work by 10/08/18. I will see her just prior to that visit to check her progress I reassured the patient that everything is going well Hypertension (Chronic) Osteoarthritis of left hip (Chronic) Pelvic enterocele, congenital or acquired Primary osteoarthritis of left hip (Resolved) Severe end stage osteoarthritis of the left hip, precluding working on the [email or web address] line at [employer] where she has worked for the past 24 years Rectocele Surgical History Abdominal hysterectomy Due to uterine fibroid bladder sling Extraction of cataract bilateral Ligation of fallopian tube Family History Mother , Denies known medical issues No problems noted. Father , Denies known medical issues No problems noted. Brother No problems noted. 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?[employer] Do you feel safe at home: Yes Do you feel safe in your relationship?: Yes Exam Const General: cooperative, healthy appearing, comfortable, no acute distress, well developed and well groomed Nutritional Appearance: average body habitus and well nourished Orientation: alert and awake Resp Effort & Inspection: normal respiratory effort and no respiratory distress Auscultation: clear to auscultation bilaterally, no rales, no rhonchi and no wheezes Cardio Rate: regular rate Rhythm: regular rhythm Heart Sounds: S1 normal and S2 normal GI Inspection: normal to inspection Palpation: soft, no hepatosplenomegaly, not firm, no guarding, not rigid and nontender Back/Spine/Pelvis Back: no CVA tenderness Skin General skin exam: no rashes or lesions noted Trauma: no lacerations or abrasions Neuro General: alert and awake Cognition: normal cognition Speech: speech normal Gait: normal gait Psych Appearance: grossly normal and well kempt Mental Status: mental status grossly normal Speech and Movement: speech and movement normal Course Vital Signs Vital signs: Vital Signs Temperature 37.1 C 09/30/19 08:16 Pulse 82 09/30/19 08:16 Respiratory Rate 18 09/30/19 08:16 Blood Pressure 154/92 H 09/30/19 08:16 Pulse Oximetry 100 09/30/19 08:16 Temperature 37.1 C 09/30/19 08:16 Temperature Source Skin 09/30/19 08:16 Pulse 82 09/30/19 08:16 Respiratory Rate 18 09/30/19 08:16 Respiratory Effort 09/30/19 08:19 Blood Pressure 154/92 H 09/30/19 08:16 Blood Pressure Position Sitting 09/30/19 08:16 Pulse Oximetry 100 09/30/19 08:16 Oxygen Delivery Method Room Air 09/30/19 08:16 Oxygen Flow Rate 0 09/30/19 08:16 Pain Level 8 09/30/19 08:19
[2019-09-30 08:31] LABS: Bilirubin Negative (Negative); Blood Large (Negative); Clarity Sl Cloudy (Clear); Glucose Negative (Negative); Ketones Negative (Negative); Leukocyte Esterase Small (Negative); Nitrite Negative (Negative); Specific Gravity 1.025 (1.005-1.025); Urobilinogen 0.2 EU/dL (Up TO 0.2)
[2019-09-30 08:41] LABS: C & S Indicated? Yes
== END 2019-09-30 08:59 | disposition home or self-care (01) ==
PROVIDERS: Emergency Provider Physician Assistant; PCP Internal Medicine
DX: N39.0 Urinary tract infection, site not specified (principal); B96.20 Unspecified Escherichia coli [E. coli] as the cause of diseases classified elsewhere; Z87.440 Personal history of urinary (tract) infections
CPT/HCPCS: 87077; 99283; 81003; 81015; 87086; 87186

== ENCOUNTER 2019-12-20 14:31 | Outpatient (REF) | payer OTHER, SELFPAY | END 2019-12-20 14:51 | LOC: NCHCN 14:31 | PROVIDERS: PCP Internal Medicine; Visit Provider Internal Medicine | DX: R31.9 Hematuria, unspecified (principal) | CPT/HCPCS: 87077; 87086; 87186 ==

== ENCOUNTER 2020-04-26 15:09 | Outpatient (REF) | payer OTHER, SELFPAY ==
[2020-04-26 21:02] LABS: HCT 38.3 % (36.0-46.0); HGB 12.8 g/dL (12.0-15.5); Mean Corp. HGB Concentration 33.4 g/dL (32.0-36.0); Mean Corpuscular Hemoglobin 32.7 pg (27.0-33.0); Mean Corpuscular Volume 97.7 fL (80-95); Mean Platelet Volume 9.5 fL (8.0-11.0); Platelet Count 261 x1000/uL (130-400); RBC 3.92 m/cumm (4.00-5.20); RBC Distribution Width 13.4 % (11.7-14.6); White Blood Cell Count 5.15 k/cumm (4.4-10.8)
[2020-04-26 21:17] LABS: Anion Gap 5.7 mmol/L (3-11); BUN 27 mg/dL (7-18); CO2 30.3 mmol/L (21.0-32.0); CREATININE 0.83 mg/dL (0.55-1.02); Calcium 9.5 mg/dL (8.5-10.1); Chloride 106 mmol/L (98-107); Glucose 99 mg/dL (74-106); Sodium 142 mmol/L (136-145)
== END 2020-04-26 15:29 ==
LOC: NCHCN 15:09
PROVIDERS: PCP Internal Medicine; Visit Provider Internal Medicine
DX: Z00.00 Encounter for general adult medical examination without abnormal findings (principal); I10 Essential (primary) hypertension
CPT/HCPCS: 80048; 85027

== ENCOUNTER 2020-11-07 12:49 | Outpatient (REF) | payer OTHER, SELFPAY ==
[2020-11-07 16:19] LABS: HCT 38.2 % (36.0-46.0); MCH 33.1 pg (27.0-33.0); MCV 97.2 fL (80-95); MPV 9.6 fL (8.0-11.0); Platelet Count 262 10^3/uL (130-400); RBC 3.93 10^6/uL (3.93-5.22); RDW 13.4 % (11.7-14.6); RDW-SD 48.2 fL; WBC 5.89 10^3/uL (4.4-10.8)
[2020-11-07 16:21] LABS: C-Reactive Protein 0.08 mg/dL (0.0-0.3)
[2020-11-07 16:36] LABS: ESR 0 mm/hr (0-30)
[2020-11-11 09:02] LABS: Cyclic Citrullinated Peptide <2.5 U/mL (<5.0)
== END 2020-11-07 13:09 ==
LOC: NCHCN 12:49
PROVIDERS: PCP Internal Medicine; Visit Provider Internal Medicine
DX: I10 Essential (primary) hypertension (principal); F41.1 Generalized anxiety disorder; M16.0 Bilateral primary osteoarthritis of hip; M19.041 Primary osteoarthritis, right hand; M19.042 Primary osteoarthritis, left hand
CPT/HCPCS: 85027; 85652; 86200; 86140

== ENCOUNTER 2020-11-11 01:47 | Outpatient (CLI) | payer OTHER, SELFPAY ==
--- NOTE | 2020-11-11 08:22 | DI.RAD_ITS ---
EXAM: XR HIP RT COMPLETE AP PELVIS CLINICAL HISTORY: OSTEOARTHRITIS RT HIP, M18.11. TECHNIQUE: 2D digital imaging was performed. COMPARISON: CR XR pelvis AP from 10/04/2018 FINDINGS: Again noted is a left hip prosthesis. Right hip exhibits significant osteoarthritic degenerative changes including joint space narrowing wh ich is most prominent superiorly and there appears to be a subarticular cyst in the superior aspect o f the acetabulum. Also osteophytes off of the femoral head. No ominous osseous lesions evident. IMPRESSION: Significant degenerative changes in the right hip. Left hip prosthesis noted. DATA REPOSITORY: RADIATION DOSE DELIVERED:
== END 2020-11-11 02:07 ==
PROVIDERS: PCP Internal Medicine; Visit Provider Internal Medicine
DX: M16.11 Unilateral primary osteoarthritis, right hip (principal); Z96.642 Presence of left artificial hip joint
CPT/HCPCS: 73502

== ENCOUNTER 2021-01-21 13:47 | Outpatient (CLI) | payer OTHER, SELFPAY ==
--- NOTE | 2021-01-21 12:45 | DI.RAD_ITS ---
EXAM: XR PELVIS AP CLINICAL HISTORY: pre op R JIMMY. TECHNIQUE: 2D digital imaging was performed. COMPARISON: CR XR pelvis AP from 10/04/2018 CR XR HIP RT COMPLETE AP PELVIS from 11/11/2020 CR XR HIP RT COMPLETE AP PELVIS from 11/11/2020 FINDINGS: BONES: No acute fracture is present. No bony destructive lesion is seen. JOINTS: No dislocation present. There are stable degenerative changes of the right hip characterized by joint space narrowing and subchondral sclerosis. The patient has a left total hip replacement. SOFT TISSUE: Normal. IMPRESSION: Stable degenerative changes of the right hip. DATA REPOSITORY: RADIATION DOSE DELIVERED:
== END 2021-01-21 13:48 | disposition home or self-care (01) ==
LOC: DIORS 13:47
PROVIDERS: PCP Internal Medicine; Visit Provider Physician Assistant
DX: M16.11 Unilateral primary osteoarthritis, right hip (principal)
CPT/HCPCS: 72170

== ENCOUNTER 2021-01-24 02:18 | Outpatient (CLI) | payer OTHER, SELFPAY ==
[2021-01-24 10:13] LABS: HCT 35.8 % (36.0-46.0); HGB 12.2 g/dL (11.2-15.7); MCH 32.9 pg (27.0-33.0); MCHC 34.1 % (32.0-36.0); MCV 96.5 fL (80-95); MPV 8.7 fL (8.0-11.0); Platelet Count 233 10^3/uL (130-400); RBC 3.71 10^6/uL (3.93-5.22); RDW 13.2 % (11.7-14.6); WBC 5.02 10^3/uL (4.4-10.8)
[2021-01-24 11:06] LABS: Anion Gap 9.2 mmol/L (3-11); BUN 20 mg/dL (7-18); CO2 26.8 mmol/L (21.0-32.0); CREATININE 0.6 mg/dL (0.55-1.02); Calcium 8.9 mg/dL (8.5-10.1); Chloride 102 mmol/L (98-107); Glucose 92 mg/dL (74-106); Potassium 4.1 mmol/L (3.5-5.1); Sodium 138 mmol/L (136-145)
== END 2021-01-24 02:19 | disposition home or self-care (01) ==
LOC: LBO 02:18
PROVIDERS: PCP Internal Medicine; Visit Provider Student in an Organized Health Care Education/Training Program
DX: M25.551 Pain in right hip (principal); M16.11 Unilateral primary osteoarthritis, right hip; Z01.818 Encounter for other preprocedural examination; Z01.812 Encounter for preprocedural laboratory examination
CPT/HCPCS: 36415; 80048; 85027; 86850; 86900; 86901

== ENCOUNTER 2021-01-28 05:55 | Day surgery (SDC) | payer OTHER, SELFPAY ==
[2021-01-28] VITALS (8 sets, daily range): BP systolic 90–141; BP diastolic 61–97; PULSE 60–73; RESP 16–22; TEMP 36.4–36.6; O2SAT 96–100
[2021-01-28] MEDS: Lactated Ringers 1,000 ML 80 ML IV (06:35)
[2021-01-28] MEDS: Celecoxib 200 MG CAP 400 MG PO (06:36)
[2021-01-28] MEDS: Acetaminophen 500 MG TAB 1000 MG PO (06:36)
--- NOTE | 2021-01-28 07:15 | DI.RAD_ITS ---
EXAM: XR HIP RT IN OR CLINICAL HISTORY: DJD RIGHT HIP TECHNIQUE: 2D and realtime digital imaging was performed. COMPARISON: No exams were available for comparison FINDINGS: C-arm fluoroscopy was utilized Dr. Grimaldo during placement of right hip prosthesis. Hard copy show s femoral and acetabular components in good position. Fluoro time, 49.9 seconds. IMPRESSION: RADIATION DOSE DELIVERED: Total DLP
--- NOTE | 2021-01-28 07:28 | W.PM.DSUDISC ---
Discharge Plan Disposition Patient Disposition: HOME Condition: Good Discharge Details Reason For Visit: R Hip DJD Attending Provider: Rehan Grimaldo Primary Care Provider: Blu Rodriguez Home Meds and New Rx's Prescriptions: New aspirin 81 mg tablet,delayed release (DR/EC) 81 mg PO BID Qty: 60 RF: 0 acetaminophen 500 mg tablet 1,000 mg PO Q8H PRN (Reason: pain) Qty: 90 RF: 3 pantoprazole 40 mg tablet,delayed release (DR/EC) 40 mg PO DAILY Qty: 30 RF: 0 docusate sodium [Colace] 100 mg capsule 100 mg PO BID PRNQty: 10 RF: 0 ibuprofen 600 mg tablet 600 mg PO TID PRN (Reason: pain) Qty: 90 RF: 3 oxycodone 5 mg tablet 5 mg PO Q4H Qty: 12 RF: 0 Continued venlafaxine [Effexor XR] 75 MG capsule,extended release 24hr 75 mg PO HS RF: 0 Slim Quick 1 tab PO DAILY RF: 0 multivitamin [Daily Multi-Vitamin] 1 EACH tablet 1 tab PO DAILY RF: 0 lisinopril 10 mg Tablet 10 mg PO HS RF: 0 Discontinued meloxicam 15 mg tablet 15 mg PO DAILY RF: 0 acetaminophen [Acetaminophen Extra Strength] 500 MG tablet 2 tab PO PRN PRNRF: 0 ibuprofen 600 mg Tablet 600 mg PO QID PRNRF: 0 Discharge Instructions Additional Instructions: Total Hip Discharge Instructions Activity: The most important activity is to walk. You should try to take short walks a few times a day. You have no restrictions on movement or positioning, but do not try to force what you do. You will find some stiffness and weakness with hip flexion (lifting your knee). Do not try to strengthen this too early, continue to practice walking and stairs and this will come. - Outpatient physical therapy can be helpful to help return you to a normal gait and improve your flexibility and strength. This can start around 2 weeks. For some patients, it?s not necessary. Usually this is determined at the time of discharge or at the first post-operative visit. - You should wear the DEANNA hose on both legs for 2 weeks. Dressing: Keep the surgical dressing in place for at least one week. After the first week it may be removed and replace with light gauze and tape or nothing. It may get wet after 3 days but avoid soaking the dressing. If it gets wet, just lightly pat dry. It is important to always keep some gauze between skin folds, especially when you are sitting. Spend some time with the wound exposed when you are lying flat as the incision does wrinkle onto itself. Medications: - You should take Tylenol and an anti-inflammatory Ibuprofen as your primary pain control medications. - You have been prescribed a stronger pain medication Oxycodone for breakthrough pain, take as needed as prescribed. - You have also been prescribed a stomach acid reduction agent Pantoprozole to help reduce stomach acid and reflux. - You will be taking Aspirin 81mg twice a day for DVT prevention unless instructed otherwise. - If you have constipation you should take Colace or Miralax (both [id number]). It takes most people 3-4 days to have a bowel movement. Follow-up: 2 weeks If you have any acute concerns or questions, please do not hesitate to contact the office at [phone]. You may contact Dr. Grimaldo with any questions after hours through the hospital at [phone] or on his cell phone at [phone]. Referrals: Rehan Grimaldo MD [ [facility] STAFF PHYSICIAN] - Equipment/Supplies: Walker Activity:: Activity as Tolerated Shower/Bathe:: 72 hours Diet:: As Tolerated Discharge Orders Discharge Orders: Discharge Order (Routine); Ordered 01/28/21 Ordered By: Rehan Grimaldo DS: Diagnosis Discharge Diagnosis (1) Degenerative joint disease of right hip: Status: Acute
[2021-01-28] MEDS: ceFAZolin 2 GM/50 ML BAG IVPB (07:56)
[2021-01-28] MEDS: Ketorolac 30 MG/ML VIAL (09:02)
[2021-01-28] MEDS: Bupivacaine 0.25% Pres-Free 30 ML VIAL (09:02)
--- NOTE | 2021-01-28 09:35 | W.PM.OP ---
Date of service: 01/28/21 Time of Service: 09:35 Operative Note Operative Note DATE OF PROCEDURE: 01/28/21 PRE-OP DIAGNOSIS: Right Hip Osteoarthritis POST-OP DIAGNOSIS: same PROCEDURE: Right Anterior Total Hip Arthroplasty SURGEON: Rehan Grimaldo IT RISK AND ASSURANCE MANAGER: Salty Milner ANESTHESIA TYPE: Spinal Refer to Anesthesia Record ESTIMATED BLOOD LOSS: 900 PATHOLOGY: none sent COMPLICATIONS: None Patient was transported to: PACU Patient's condition: stable Implants: 1. Depuy [place] Acetabular Component, 48mm 2. Depuy Acetabular Liner, [id number] 3. Depuy Corail Standard 125 Collared Femoral Stem, Size 12 4. Depuy Altrx Ceramic Femoral Head, Size 32+9mm Indications: I have seen Kaci in clinic for symptoms of hip arthritis, confirmed with radiographic findings. She has exhausted nonoperative methods and was having significant limitations in daily function and desired better function and less pain. I discussed the technical details of a hip replacement. I explained the risks of the procedure to include, but not limited to, bleeding, infection, pain, stiffness, fracture, damage to nerves and vessels, damage to muscles and tendons, loosening, instability, leg length inequality, need for repeat procedure, blood clot and cardiopulmonary demise. Despite these risks, Kaci elected to proceed. Findings: There was significant signs of arthritis throughout the hip, mostly involving the weightbearing portion of the acetabulum and femoral head. Procedure Description: Kaci was greeted in the preoperative holding area where the correct side was identified and marked. The consent was reviewed with the patient and signed. The history and physical was updated. All questions were answered. She was taken back to the operating room. A spinal anesthestic was then administered. The feet were wrapped with cast padding and Coban and then placed into the boot liners and then into the boots. Care was taken to protect the skin and make sure the heels were fully down and the boots were stable. The patient was then positioned onto the HANA table. Both legs were held in a neutral position. SCDs were applied. The patient was then slid down onto a peroneal post. Prophylactic antibiotics in the form of Cefazolin were administered. 1g of Tranxemic Acid was given intravenously within 30 minutes of incision. The right leg was then prepped with Chloraprep and draped in a standard fashion. A second prep with Chloraprep was performed prior to placement of a shower-curtain type drape with Iodine impregnated skin protection. A timeout to confirm correct identity, side and site, procedure, allergies, anesthesia, and medical concerns was performed. An obliquely oriented incision was made starting lateral to the ASIS and running distal over the Tensor Fascia Hedy (TFL) muscle belly toward the fibular head, approximately 10cm. The skin and soft tissue was dissected sharply, through Deena?s fascia, and to the fascia of the TFL. With the fascia and superior border of the IT band identified, the fascia was incised with a new knife just above any perforators from the IT band. The TFL muscle belly was bluntly dissected away from the fascia and moved laterally. The fat between TFL and rectus was identified to ensure the dissection was not within the TFL. Blunt dissection created space between abductors and the capsule and retractor was placed over the lateral femoral neck. The fibers of the rectus femoris tendon were identified and these were freed from the anterior capsule. A second cobra retractor was placed around the medial femoral neck. The TFL was further retracted laterally to show the deep fascia. Careful dissection through this layer identified three main crossing vessels of the lateral femoral circumflex. These were cauterized in multiple locations and then cut without any noticeable bleeding. The TFL was further released bluntly from the deep fascia to expose anterior hip capsule and fat The Barak orthopaedic retractor was then placed beneath the TFL and against sartorius and medial soft tissues to protect and retract the soft tissues. A T-capsulotomy was then performed starting at the superior lateral acetabulum and moving distally to the intertrochanteric ridge. These capsular flaps were tagged with a No. 1 Ethibond and elevated from within. The capsular flaps were released to the shoulder of the lateral neck and to the lesser trochanter to give excellent visualization of the proximal femur. A neck osteotomy was performed using an oscillating saw based on preoperative templates. This cut started in the shoulder and of the lateral neck and exited medially. The saw was at all times directed medially to avoid injury to the greater trochanter. Gross traction was applied to the leg and the osteotomy opened. The femoral head was removed with a corkscrew, making sure to protect the TFL on its exit. Traction was released after head removal. This was measured on the back table to determine the starting reamer size. Portions of the rectus obscuring visualization were minimally elevated off the superior acetabulum. An anterior retractor was placed over the anterior wall between capsule and labrum and attached to the Gripper retraction system. The femur was rotated to 90 degrees and medial capsule was fully released until the lesser trochanter was palpable and visible; the femur was returned to 30 degrees. A posterior retractor was placed similarly between capsule and labrum. This provided excellent visualization. The contents of the cotyloid fossa were removed with electrocautery and the labrum was removed with a knife. There was significant chondromalacia of the superior acetabulum. There was notable ooze from the cut surface of the femur. NO other bleeding source was identified. Acetabular reaming began with a 44mm reamer. This first reaming was directed anterior to posterior and medial to get down to the true floor. This was inspected and reamed until the true floor was reached. The anterior retractor was then released and entry and exit was provided by traction on the capsular flaps. I then reamed sequentially up to a 48mm reamer where good fit was obtained. The larger reamers were oriented based on anatomical reference of the anterior and lateral echavarria to ensure proper abduction and anteversion. Positioning and size was confirmed with the fluoroscopy. A 48mm Depuy [place] acetabular component was selected. The acetabulum was reamed around the periphery with the selected acetabular size to prevent a rim fit. The deep tissues were irrigated. The acetabular component was then impacted in a position of about 40-45 degrees of abduction and 15-20 degrees of anteversion, using the patient?s anatomy as the ultimate landmark. Fluoroscopy was used to confirm this. There was excellent system analyst of the acetabular component and the inserting handle was removed. The acetabular liner, Depuy [id number] polyethylene liner, was inserted and lined up with the tines of the acetabular component. There was no soft tissue interposition. The liner was then impacted into position and confirmed to be well-seated. A portion of the jan-articular cocktail was then injected around the acetabulum into the capsule and periosteum. This cocktail consisted of 50cc of 0.25% Bupivicaine and 20cc of Exparel and 30mg of Ketorolac. The leg was rotated to 120 degrees. Any remaining medial capsule was released until the lesser trochanter was easily palpable. A retractor was placed medially. The lateral capsule was further released into the shoulder to allow access to the greater trochanter. A Dubois retractor was placed over the greater trochanter which allowed the trochanter to flip in front of the capsule for excellent exposure. The leg was brought down into maximal extension and 20 degrees of adduction while ensuring there was no impingement on the acetabulum. Any remnant capsule within the trochanter was released. Piriformis and obturator externis were identified and protected. There was excellent access to the proximal femur. The lateral neck remnant was removed with a rongeur. A blunt canal probe was used to identify the canal and trajectory for later broaching. A box osteotome initiated the broach course. A small curved rasp and a curved curette were used to work laterally. Broaching then began with a size 8 Corail broach. This was inserted manually around the trochanter and into the canal before mallet blows. The broach was seated to a few millimeters below the cut level based on the neck cut and the preoperative template. Sequential broaching was continued with the Project Managerse pneumatic broaching device until a tight fit was obtained with good rotational control of the femur. A trial standard neck was inserted along with a +5 trial head. The leg was brought out of extension and adduction and then reduced with traction and internal rotation. The leg was stable anteriorly in a position of 30 degrees of extension and 90 degrees of external rotation. Fluoroscopy was used to ensure there was no fracture and the stem was seated well. Leg lengths were checked with an AP pelvis and pelvic reference points. [employer] navigation system was used to confirm appropriate positioning and leg length and offset. This demonstrated too much leg length and a small lack of offset, so I went with a 125 degree standard neck which would add only 2mm of length and 1mm of offset with a +9 head. Once content with the desired offset and leg lengths, the leg was brought back into extension, external rotation and adduction. The periosteum and surrounding tissue was injected with remaining portion of the jan-articular cocktail. The proximal femur was irrigated as well as the deep tissues. The Depuy Corail standard 125 degree collared stem, size 12, was then manually inserted into the proximal femur making sure to control rotation. It was then malleted into position with light blows, giving breaks to allow bone expansion and decrease risk of fracture. The selected Depuy Altrx Ceramic Head, size 32+9mm, was then placed onto the clean and dry trunnion and secured with impaction onto the tapered fit. The leg was brought back out of extension and adduction and reduced with traction and internal rotation. Stability was confirmed with no shuck at 90 degrees of external rotation and 30 degrees of extension. No impingement through range of motion arc. Final x-ray images were obtained with fluoroscopy to confirm adequate positioning and no intraoperative fracture. There was more blood loss than anticipated and per normal. 900cc of blood loss was the determined number however there was no active bleeding. After implantation of the components there was no significant bleeding appreciated. The deep tissues were thoroughly irrigated with Irrisept chlorhexadine solution. The second dose of TXA 1g was administered intravenously.The capsule was then reapproximated with the previously placed Ethibond sutures. The TFL fascia was finally closed with a No. 2 Stratafix, barbed suture. Deep tissues were then reapproximated with 0 Vicryl and a running 2-0 Vicryl. The skin was closed with a running 4-0 Monocryl in a subcuticular fashion. This was reinforced with skin glue. A Mepilex silver dressing was applied. At the end of the case, all counts were correct. Kaci was transferred to the hospital bed without difficulty and suffering more blood loss than expected but no other complication. Kaci has a good prognosis. Physical therapy will start today and without restrictions, weight-bearing as tolerated. Aspirin 81mg BID will be used for DVT prophylaxis.
[2021-01-28] MEDS: oxyCODONE 5 MG TAB PO (10:45)
--- NOTE | 2021-01-28 11:03 | IN_ITS ---
Date of service: 01/28/21 Time of Service: 11:03 PT Notes Visit Reasons: R Hip DJD Physical Therapy Day Surgery Initial Evaluation Date: 01/28/2021 Referring Doctor: Rehan Grimaldo MD PT Orders: PT CONSULT: S/P Ortho surgery. S/P Anterior JIMMY. Precautions: WBAT on R LE. Patient Profile/Admitting Diagnosis: Kaci is a 60-year-old female with primary unilateral osteoarthritis of the R hip and is S/P R total hip arthroplasty on post operative day 0. PMHX: Medical History Cataracts, bilateral Constipation Degenerative joint disease of right hip Depression Encounter for postoperative care Status post left cementless total hip arthroplasty. Patient is generally doing well and is improved from her last visit. It is unclear as to whether or not she will be ready to return to work by 10/08/18. 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 Independent with all ADLS prior to surgery although she states that she has suffered for quiret a while before she decided to have surgery. Equipment Owned/DME: [facility], [facility] Subjective: Agreeable to PT consult. Denies dizziness, headache, and dizziness throughout. 4/10 pain in R front of thigh. Objective: General Observation: Supine in DSU stretcher, IV access in R UE. Bilateral TEDS on. Cold pack on R hip. Mental Status: Alert and oriented x 4 Pain: 4/10 in R anterior thigh ROM: Right Upper Extremity: Shoulder Flexion WFL. Shoulder abduction WFL. Elbow flexion WFL. Wrist flexion WFL. Functional opening and closing of hand WFL. Left Upper Extremity: Shoulder Flexion WFL. Shoulder abduction WFL. Elbow flexion WFL. Wrist flexion WFL. Functional opening and closing of hand WFL. Right Lower Extremity: Hip flexion WFL. Hip abduction WFL. Knee flexion WFL. Ankle dorsiflexion WFL. Ankle plantarflexion WFL. Left Lower Extremity: Hip flexion WFL. Hip abduction WFL. Knee flexion WFL. Ankle dorsiflexion WFL. Ankle plantarflexion WFL. Strength: Right Upper Extremity: Shoulder flexors 5/5. Shoulder abductors 5/5. Elbow flexors 5/5. Elbow extensors 5/5. Animal Behaviorist strong. Left Upper Extremity: Shoulder flexors 5/5. Shoulder abductors 5/5. Elbow flexors 5/5. Elbow extensors 5/5. Animal Behaviorist strong. Right Lower Extremity: Hip flexors 4/5. Hip abductors 4/5. Knee flexors 5/5. Knee extensors 4/5. Ankle dorsiflexors 5/5. Ankle plantarflexors 5/5. Left Lower Extremity:Hip flexors 5/5. Hip abductors 5/5. Knee flexors 5/5. Knee extensors 5/5. Ankle dorsiflexors 5/5. Ankle plantarflexors 5/5. Sensation: Intact as to pain and light touch in B LE Bed Mobility/Transfers: Supine to sit: stand by assist Sit to stand stand by assist Stand to sit stand by assist Bed to chair stand by assist Gait: Kaci was guided through level surface ambulation of up to 200 feet + 50 feet using the front-wheeled walker with SBA of PT and wheelchair follow of Nurse Hernandez. Step-through heel-toe gait pattern with report of 4/10 pain in R anterior thigh. Balance: Static Sitting: Normal Dynamic Sitting: Normal Static Standing: Fair Dynamic Standing: Fair Special Tests: Mobility Limitations Standardized Measure [facility] AM-PAC 6 clicks Basic Mobility Inpatient Short Form: Raw Score: 23 CMS Score: 11% deficit Informed Consent/Education: Patient instructed in purpose of PT consult. Packet containing R JIMMY exercise protocol has been given to patient. Education and training on initial set of exercises that can be done at home have been completed with patient. Assessment: Kaci demonstrate functional mobility decline requiring the use of a front-wheeled walker for all mobility ADL performance and a SPC for stairs. She will have needed support from at home. Pain report did not limit mobility ADL performance during this session. Patient presents with clinical signs and symptoms consistent with current/admitting diagnoses that have resulted to mobility limitations, gait instability, generalized weakness, and impairment of motor control as demonstrated by the following impairment level findings: 1. Decreased strength to right hip major muscle groups 2. Impaired standing balance Impairments are contributing to the following functional limitations: 1. Inability to safely ambulate without assistive device 2. Increase completion time for mobility ADL performance Patient is assessed as a 24729 moderate complexity based on the following: History: 60-year-old female with impairment level findings, functional limitations, and past medical history as indicated above Examination: Demonstrable impairment in strength, balance, and mobility level with underlying impairments and functional limitations as documented above Presentation: Evolving Decision Makin moderate complexity Goals: N/A. PT evaluation and 1-2 treatment sessions only for functional mobility training using recommended AD and for HEP instruction. Plan of Care/Treatment Plan: N/A. PT evaluation and 1-2 treatment session only for functional mobility training using recommended AD and for HEP instruction. PT INTERVENTION RECEIVED TODAY: Assessment for and fitting of appropriate assistive device. Guided patient through bed mobility, transfers, and mobility ADL performance on level surfaces using front wheeled walker and on stairs using single point cane in order to reduce fall risk. Educated and trained patient on HEP performance to maximize post-surgical functional outcomes. Education on the use of benefit of cold pack use was done as well. DISCHARGE RECOMMENDATIONS: Home when cleared by hospitalist. No equipment needs at this time. OP PT services to facilitate independent return to independent ADL performance without AD. TREATMENT CODE/TIME: 53071 x 20 minutes, 57489 x 25 minutes beginning at 11:03 AM. Thank you for the opportunity to participate in the care of this patient. Marielos Grant PT, DPT, CLT [facility] [place], [place]
== END 2021-01-28 12:35 | disposition home or self-care (01) ==
PROVIDERS: PCP Internal Medicine; Visit Provider Student in an Organized Health Care Education/Training Program
PROC: (CPT 27130; principal; 2021-01-28 07:30)
DX: M16.11 Unilateral primary osteoarthritis, right hip (principal); I10 Essential (primary) hypertension; F41.9 Anxiety disorder, unspecified
CPT/HCPCS: 27130; 20985; 97162; 97530; 73501; J0690; J1885; J2250; J2405

== ENCOUNTER 2021-02-13 10:09 | Outpatient (CLI) | payer OTHER, SELFPAY ==
--- NOTE | 2021-02-13 09:30 | DI.RAD_ITS ---
EXAM: XR HIP RT COMPLETE AP PELVIS CLINICAL HISTORY: 1st post op R JIMMY. TECHNIQUE: 2D digital imaging was performed. COMPARISON: CR XR PELVIS AP from 01/21/2021 FINDINGS: There are now bilateral hip prostheses. The position and alignment of the components of the newly pl aced right hip prosthesis are satisfactory with no fracture or loosening. Appearance of the opposite -left hip prosthesis is also satisfactory. IMPRESSION: DATA REPOSITORY: RADIATION DOSE DELIVERED:
== END 2021-02-13 10:10 | disposition home or self-care (01) ==
LOC: DIORS 10:09
PROVIDERS: PCP Internal Medicine; Referring Provider Internal Medicine; Visit Provider Student in an Organized Health Care Education/Training Program
DX: Z96.641 Presence of right artificial hip joint (principal)
CPT/HCPCS: 73502

== ENCOUNTER 2021-04-10 10:13 | Outpatient (CLI) | payer OTHER, SELFPAY ==
--- NOTE | 2021-04-10 08:45 | DI.RAD_ITS ---
Exam(s) XR HIP RT AP LAT ONLY EXAM: XR HIP RT AP LAT ONLY CLINICAL HISTORY: pain after right total hip replacement TECHNIQUE: COMPARISON: CR XR HIP RT COMPLETE AP PELVIS from 02/13/2021 FINDINGS: Two views were obtained. There is a total hip joint replacement position. The components appear wel l seated. No other significant bony abnormality seen. IMPRESSION: RADIATION DOSE DELIVERED: Total DLP
== END 2021-04-10 10:14 | disposition home or self-care (01) ==
LOC: DIORS 13:30
PROVIDERS: PCP Internal Medicine; Referring Provider Internal Medicine; Visit Provider Student in an Organized Health Care Education/Training Program
DX: M25.551 Pain in right hip (principal); Z96.641 Presence of right artificial hip joint
CPT/HCPCS: 73502

== ENCOUNTER 2021-09-01 15:47 | Outpatient (CLI) | payer OTHER, SELFPAY ==
--- NOTE | 2021-09-01 15:00 | DI.RAD_ITS ---
Exam(s) XR LUMBAR SPINE COMPLETE EXAM: XR LUMBAR SPINE COMPLETE CLINICAL HISTORY: eval low back pain and hip pain bilaterally. TECHNIQUE: 2D digital imaging was performed. 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 There is no evidence of fracture. There is mild degenerative anterolisthesis L4 upon L5, approximate ly 2 millimeters. Normal disc height at this level as well as at other levels in the lumbar spine. Moderate degenerative facet joint changes noted. Bilateral hip prostheses. Sacroiliac joints appear age-appropriate. No ankylosis. No osseous lesions. IMPRESSION: DATA REPOSITORY: RADIATION DOSE DELIVERED:
== END 2021-09-01 15:48 | disposition home or self-care (01) ==
LOC: DIORS 15:47
PROVIDERS: PCP Internal Medicine; Referring Provider Internal Medicine; Visit Provider Student in an Organized Health Care Education/Training Program
DX: M54.16 Radiculopathy, lumbar region (principal); M25.551 Pain in right hip; M25.552 Pain in left hip; M47.26 Other spondylosis with radiculopathy, lumbar region
CPT/HCPCS: 72110

== ENCOUNTER 2021-09-19 02:34 | Outpatient (CLI) | payer OTHER, SELFPAY ==
--- NOTE | 2021-09-19 06:45 | DI.MRI_ITS ---
Exam(s) MR LUMBAR SPINE WO EXAM: MR LUMBAR SPINE WO CLINICAL HISTORY: back pain, lumbar radiculopathy,[id number]. TECHNIQUE: Multiplanar multisequence MRI of the Lumbar spine was performed. COMPARISON: CR XR LUMBAR SPINE COMPLETE from 09/01/2021 FINDINGS: Bones: The last intervertebral disc space is designated the L5/S1 level for the numbering purpose of this examination. The vertebral body heights are well maintained. Alignment is satisfactory. Cord: The conus tip ends at the T12 L1 level. It is of normal size and signal intensity. 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 Right-sided nerve root sheath cyst. T12-L1: No disc herniations or bulges are present. Hemangioma T12. tiny right sided nerve root sheat h cyst. L1-2: Mild disc bulging and small endplate osteophytes. No disc herniations . L2-3: Mild concentric disc bulging. Facet degenerative changes and ligamentous hypertrophy. Mild ce ntral canal stenosis and mild bilateral neural foraminal narrowing. L3-4: Minimal disc bulging. Facet degenerative changes and ligamentous hypertrophy cause mild centr al canal stenosis. L4-5: Mild concentric disc bulging. Mild facet degenerative changes and ligamentous hypertrophy. N o significant central canal stenosis or neural foraminal narrowing. Small right-sided nerve root she ath cyst. L5-S1: Minimal disc bulging. No significant neural foraminal narrowing or central canal stenosis. Mild facet joint degenerative changes. Soft tissues: The visualized SI joints and sacrum are well maintained. The paraspinal soft tissues ar e unremarkable. IMPRESSION: Multilevel mild degenerative disc bulging. No focal disc herniation. Facet degenerative changes and ligamentous hypertrophy causes mild central canal stenosis at L2-3 and L3-4. Right-sided nerve root sheath cysts at T 11 12, T12-L1 and L4-5. DATA REPOSITORY:
== END 2021-09-19 02:54 ==
PROVIDERS: PCP Internal Medicine; Visit Provider Student in an Organized Health Care Education/Training Program
DX: M54.16 Radiculopathy, lumbar region (principal); M51.17 Intervertebral disc disorders with radiculopathy, lumbosacral region; M47.27 Other spondylosis with radiculopathy, lumbosacral region; G96.191 Perineural cyst
CPT/HCPCS: 72148

== ENCOUNTER 2022-05-22 01:51 | Outpatient (CLI) | payer BC, SELFPAY ==
[2022-05-22 12:49] LABS: HCT 38.7 % (36.0-46.0); HGB 12.9 g/dL (11.2-15.7); MCH 32.9 pg (27.0-33.0); MCHC 33.3 % (32.0-36.0); MCV 99 fL (80-95); MPV 9.3 fL (8.0-11.0); Platelet Count 218 10^3/uL (130-400); RBC 3.92 10^6/uL (3.93-5.22); RDW 13.7 % (11.7-14.6); RDW-SD 49.4 fL; WBC 4.17 10^3/uL (4.4-10.8)
[2022-05-22 13:19] LABS: ALT 22 U/L (14-59); AST 26 U/L (15-37); Alkaline Phosphatase 56 U/L (46-116); Anion Gap 6.7 mmol/L (3-11); BUN 16 mg/dL (7-18); Bilirubin, Total 0.3 mg/dL (0.2-1.0); CO2 30.3 mmol/L (21.0-32.0); CREATININE 0.5 mg/dL (0.55-1.02); Calcium 9.1 mg/dL (8.5-10.1); Chloride 102 mmol/L (98-107); Glucose 110 mg/dL (74-106); Potassium 4.5 mmol/L (3.5-5.1); Sodium 139 mmol/L (136-145); Total Protein 7.3 g/dL (6.4-8.2)
== END 2022-05-22 01:52 | disposition home or self-care (01) ==
LOC: LOS 01:54
PROVIDERS: Family Medicine; PCP Internal Medicine; Visit Provider Internal Medicine
DX: F10.99 Alcohol use, unspecified with unspecified alcohol-induced disorder (principal); Z79.1 Long term (current) use of non-steroidal anti-inflammatories (NSAID); Z86.2 Personal history of diseases of the blood and blood-forming organs and certain disorders involving the immune mechanism
CPT/HCPCS: 36415; 80053; 85027

== ENCOUNTER 2023-12-14 16:40 | Outpatient (REF) | payer OTHER, SELFPAY ==
[2023-12-14 20:32] LABS: Abs Immature Grans 0.01 10^3/uL (0.0-0.06); Absolute Basophil Count 0.03 10^3/uL (0.0-0.2); Absolute Eosinophil Count 0.07 10^3/uL (0.0-0.7); Absolute Lymphocyte Count 1.79 10^3/uL (1.2-3.4); Absolute Monocyte Count 0.53 10^3/uL (0.1-0.8); Absolute Neutrophil Count 4.42 10^3/uL (1.2-6.7); Basophils % 0.4; HCT 39.1 % (36.0-46.0); HGB 12.9 g/dL (11.2-15.7); Immature Grans % 0.1; Lymphocytes % 26.1; MCV 100 fL (80-95); MPV 9.5 fL (8.0-11.0); Monocytes % 7.7; Neutrophils % 64.7; Platelet Count 257 10^3/uL (130-400); RBC 3.91 10^6/uL (3.93-5.22); RDW 13.6 % (11.7-14.6); RDW-SD 50.4 fL; WBC 6.85 10^3/uL (4.4-10.8)
[2023-12-14 20:42] LABS: ALT 20 U/L (14-59); AST 15 U/L (15-37); Albumin 3.9 g/dL (3.4-5.0); Alkaline Phosphatase 68 U/L (46-116); Anion Gap 9.8 mmol/L (3-11); BUN 25 mg/dL (7-18); Bilirubin, Total 0.3 mg/dL (0.2-1.0); CO2 27.2 mmol/L (21.0-32.0); CREATININE 0.6 mg/dL (0.55-1.02); Calcium 9.3 mg/dL (8.5-10.1); Chloride 105 mmol/L (98-107); Glucose 102 mg/dL (74-106); Potassium 4.3 mmol/L (3.5-5.1); Sodium 142 mmol/L (136-145)
[2023-12-14 20:49] LABS: Hemoglobin A1C 5.4 % (<5.7)
== END 2023-12-14 16:41 | disposition home or self-care (01) ==
LOC: NCHCN 16:40
PROVIDERS: PCP Family Medicine; Visit Provider Family Medicine
DX: R73.03 Prediabetes (principal); R03.0 Elevated blood-pressure reading, without diagnosis of hypertension
CPT/HCPCS: 80053; 83036; 85025

== ENCOUNTER 2024-12-20 11:56 | Outpatient (REF) | payer BC, SELFPAY ==
[2024-12-20 14:10] LABS: HCT 38.7 % (36.0-46.0); HGB 12.8 g/dL (11.2-15.7); MCH 32.6 pg (27.0-33.0); MCHC 33.1 % (32.0-36.0); MCV 99 fL (80-95); MPV 9.1 fL (8.0-11.0); Platelet Count 250 10^3/uL (130-400); RBC 3.93 10^6/uL (3.93-5.22); RDW 13.3 % (11.7-14.6); RDW-SD 48.4 fL; WBC 5.46 10^3/uL (4.4-10.8)
[2024-12-20 14:26] LABS: ALT 22 U/L (14-59); AST 16 U/L (15-37); Alkaline Phosphatase 60 U/L (46-116); Anion Gap 5.2 mmol/L (3-11); BUN 14 mg/dL (7-18); Bilirubin, Total 0.45 mg/dL (0.2-1.0); CO2 31.8 mmol/L (21.0-32.0); CREATININE 0.6 mg/dL (0.55-1.02); Calcium 9.6 mg/dL (8.5-10.1); Chloride 106 mmol/L (98-107); Estimated GFR 100.17 (mL/min/1.73m2); Glucose 96 mg/dL (74-106); Potassium 4.6 mmol/L (3.5-5.1); Sodium 143 mmol/L (136-145)
[2024-12-20 14:35] LABS: Hemoglobin A1C 5.6 % (<5.7)
== END 2024-12-20 11:57 | disposition home or self-care (01) ==
LOC: NCHCN 11:56
PROVIDERS: PCP Family Medicine; Visit Provider Family Medicine
DX: R73.03 Prediabetes (principal); F10.10 Alcohol abuse, uncomplicated
CPT/HCPCS: 80053; 85027; 83036